=== PATIENT | female | born 1995 | race Caucasian/White ===

== ENCOUNTER 2016-07-28 18:19 | Inpatient (IN) | payer OTHER ==
[~2016-07-28] VITALS: Ht 162.6 cm; Wt 60.0 kg
--- NOTE | 2016-07-28 20:56 | DIAGNOSTIC IMAGING REPORT ---
PROCEDURE: CT ABD/PELVIS WITH CONTRAST INDICATION: Left abdominal pain. Fever. Elevated white blood count (26,800). History of splenectomy. TECHNIQUE: 95 ml of Isovue 300 were injected intravenously and axial images were obtained of the entire abdomen and pelvis with sagittal and coronal reformations. COMPARISON: Compared to CT abdomen pelvis on 11/2010. FINDINGS: ABDOMEN: Moderate to marked consolidation at the left anterior lung, with mild parenchymal changes at the posterior lung bases, and a small left effusion. Gallbladder is partially contracted with (with moderate ingested material in the stomach). There is moderate stool in the left colon. Bowel pattern is otherwise normal, including appendix of. Status post splenectomy. Liver, pancreas, kidneys, and aorta are normal. PELVIS: Moderate stool in the sigmoid colon. Uterus and adnexal structures are normal. No evidence of free fluid. IMPRESSION: 1. Moderate to marked consolidation at the left anterior lung base with mild parenchymal changes at the posterior lung bases, and a small left pleural effusion. Findings are most compatible with pneumonia. 2. Moderate stool throughout the left and sigmoid colon. Consider obstipation. 3. Status post splenectomy. 4. Findings discussed with NATALIYA Salmon. All CT scans at this facility use dose modulation, iterative reconstruction, and/or weight-based dosing when appropriate to reduce radiation dose to as low as reasonably achievable.
--- NOTE | 2016-07-28 21:15 | ED ORDER SUMMARY ---
..... Patient: OK BUSCH OrderSheet [facility] VisitID: [id number] [place] [address] 21y, F Registration Date/Time: 07/28/2016 ORDER SHEET Weight: 54.4 kg (stated) Allergies: None GENERAL ORDERS: CT Abd/Pel w Cont (No) (pending) Urgent (19:00 07/28/2016 HBivens A.R.N.P.) (Ack 19:01 KHoerner) (20:36 MCampbell) CBC w Diff Urgent (19:00 07/28/2016 HBivens A.R.N.P.) (Ack 19:01 KHoerner) (19:19 KKnebel R.N.) CMP Urgent (19:00 07/28/2016 HBivens A.R.N.P.) (Ack 19:01 KHoerner) (19:19 KKnebel R.N.) UA-Culture if indicated Urgent (19:00 07/28/2016 HBivens A.R.N.P.) (Ack 19:01 KHoerner) (20:38 KKnebel R.N.) Amylase Urgent (19:00 07/28/2016 HBivens A.R.N.P.) (Ack 19:01 KHoerner) (19:19 KKnebel R.N.) Lipase Urgent (19:00 07/28/2016 HBivens A.R.N.P.) (Ack 19:01 KHoerner) (19:19 KKnebel R.N.) Urine Drug Screen Urgent (19:26 07/28/2016 HBivens A.R.N.P.) (19:28 KKnebel R.N.) Urine Urgent (19:27 07/28/2016 HBivens A.R.N.P.) (19:28 KKnebel R.N.) Blood Culture (No) (N/A) Urgent (19:46 07/28/2016 HBivens A.R.N.P.) (Ack 19:57 AMcQuoid ER Tech1) (20:03 KKnebel R.N.) Lactate, Serum Urgent (19:47 07/28/2016 HBivens A.R.N.P.) (Ack 19:57 AMcQuoid ER Tech1) (20:03 KKnebel R.N.) PCT (Procalcitonin) Urgent (19:47 07/28/2016 HBivens A.R.N.P.) (Ack 19:57 AMcQuoid ER Tech1) (20:03 KKnebel R.N.) Rapid Influenza Screen (Nasal Pharyngeal) (nares) Urgent (20:52 07/28/2016 HBivens A.R.N.P.) (Ack 21:12 AMcQuoid ER Tech1) (21:46 KKnebel R.N.) Chest 2V Urgent (21:00 07/28/2016 HBivens A.R.N.P.) (Ack 21:12 AMcQuoid ER Tech1) (21:31 MCampbell) MEDICATION ORDERS: IV FLUIDS: IV NS : initial bolus 1000 mL (1000 mL/hr), then none - (NOW) (18:59 07/28/2016 HBivens A.R.N.P.) (19:20 KKnebel R.N.) Toradol IV 30 mg (NOW) (18:59 07/28/2016 HBivens A.R.N.P.) (19:20 KKnebel R.N.) IV Saline Lock (19:00 07/28/2016 HBivens A.R.N.P.) (19:19 KKnebel R.N.) Ceftriaxone IV 1 gm/50mL (NOW) (21:12 07/28/2016 HBivens A.R.N.P.) (21:45 KKnebel R.N.) ORDER SHEET NOTES: [Electronically signed by Ema Meraz R.N. (23:11 07/28/2016)] [Electronically signed by Kari Brush A.R.N.P. (12:59 07/29/2016)] [Electronically locked/signed by Ema Meraz R.N. (23:11 07/28/2016)]
--- NOTE | 2016-07-28 21:15 | ED ORDER SUMMARY ---
..... Patient: OK BUCSH OrderSheet [facility] VisitID: [id number] [place] [address] 21y, F Registration Date/Time: 07/28/2016 ORDER SHEET Weight: 54.4 kg (stated) Allergies: None GENERAL ORDERS: CT Abd/Pel w Cont (No) (pending) Urgent (19:00 07/28/2016 HBivens A.R.N.P.) (Ack 19:01 KHoerner) (20:36 MCampbell) CBC w Diff Urgent (19:00 07/28/2016 HBivens A.R.N.P.) (Ack 19:01 KHoerner) (19:19 KKnebel R.N.) CMP Urgent (19:00 07/28/2016 HBivens A.R.N.P.) (Ack 19:01 KHoerner) (19:19 KKnebel R.N.) UA-Culture if indicated Urgent (19:00 07/28/2016 HBivens A.R.N.P.) (Ack 19:01 KHoerner) (20:38 KKnebel R.N.) Amylase Urgent (19:00 07/28/2016 HBivens A.R.N.P.) (Ack 19:01 KHoerner) (19:19 KKnebel R.N.) Lipase Urgent (19:00 07/28/2016 HBivens A.R.N.P.) (Ack 19:01 KHoerner) (19:19 KKnebel R.N.) Urine Drug Screen Urgent (19:26 07/28/2016 HBivens A.R.N.P.) (19:28 KKnebel R.N.) Urine Urgent (19:27 07/28/2016 HBivens A.R.N.P.) (19:28 KKnebel R.N.) Blood Culture (No) (N/A) Urgent (19:46 07/28/2016 HBivens A.R.N.P.) (Ack 19:57 AMcQuoid ER Tech1) (20:03 KKnebel R.N.) Lactate, Serum Urgent (19:47 07/28/2016 HBivens A.R.N.P.) (Ack 19:57 AMcQuoid ER Tech1) (20:03 KKnebel R.N.) PCT (Procalcitonin) Urgent (19:47 07/28/2016 HBivens A.R.N.P.) (Ack 19:57 AMcQuoid ER Tech1) (20:03 KKnebel R.N.) Rapid Influenza Screen (Nasal Pharyngeal) (nares) Urgent (20:52 07/28/2016 HBivens A.R.N.P.) (Ack 21:12 AMcQuoid ER Tech1) (21:46 KKnebel R.N.) Chest 2V Urgent (21:00 07/28/2016 HBivens A.R.N.P.) (Ack 21:12 AMcQuoid ER Tech1) (21:31 MCampbell) MEDICATION ORDERS: IV FLUIDS: IV NS : initial bolus 1000 mL (1000 mL/hr), then none - (NOW) (18:59 07/28/2016 HBivens A.R.N.P.) (19:20 KKnebel R.N.) Toradol IV 30 mg (NOW) (18:59 07/28/2016 HBivens A.R.N.P.) (19:20 KKnebel R.N.) IV Saline Lock (19:00 07/28/2016 HBivens A.R.N.P.) (19:19 KKnebel R.N.) Ceftriaxone IV 1 gm/50mL (NOW) (21:12 07/28/2016 HBivens A.R.N.P.) (21:45 KKnebel R.N.) ORDER SHEET NOTES: [Electronically signed by Ema Meraz R.N. (23:11 07/28/2016)] [Electronically signed by Kari Brush A.R.N.P. (12:59 07/29/2016)] [Electronically locked/signed by Ema Meraz R.N. (23:11 07/28/2016)]
--- NOTE | 2016-07-28 21:15 | ED NURSING NOTES ---
Clinical Report - Nurses Merged With [facility] [address] [place] [address] 07/28/2016 18:20 Patient: OK BUSCH TRIAGE Triage time 18:37 Jul 28 2016. Acuity: LEVEL 3. Chief Complaint: ABDOMINAL PAIN. Alert. No acute distress. --18:42 Ema Meraz R.N. 18:37 07/28/16. BP: 134/75. HR: 134. RR: 30. O2 saturation: 96%. Temp: 99.9 F. Pain level now: 01/26. --18:42 Ema Meraz R.N. Weight: 54.4 kg stated. Height/Length: 64 inches Per Patient. BMI: 20.6. --18:42 Ema Meraz R.N. Medications None. --18:39 Ema Meraz R.N. Allergies None. --18:39 Ema Meraz R.N. History Arrived by private vehicle. Historian: patient. Accompanied by family. This is a new problem. Symptoms are constant (about 1 weeks). She has had fever. Last oral intake by patient was this afternoon. Treatment RFP WRITER: Took Tylenol. PAST MEDICAL HX: Immunizations: up-to-date. Last normal menstrual period now. Denies current . SOCIAL HX: Current every day heavy tobacco smoker (cigarette)- less than 1 pack per day. No alcohol use or drug use. No recent travel. No infectious disease exposure. No known contact with a sick individual. SELF HARM ASSESSMENT: A self harm assessment was performed. The patient answered "no" to the question "Do you have thoughts of harming or killing yourself?". FALL RISK ASSESSMENT: Fall risk assessment completed. No fall risk identified. NUTRITIONAL RISK ASSESSMENT: The nutritional risk assessment revealed no deficiencies. FUNCTIONAL ASSESSMENT: Functional assessment: no impairments noted. LEARNING NEEDS ASSESSMENT: The learning needs assessment revealed no barriers. ABUSE ASSESSMENT: Abuse assessment: The patient was asked "Do you feel safe in your home?". SKIN INTEGRITY ASSESSMENT: Skin integrity risk assessment completed. No skin integrity risk identified. --18:42 Ema Meraz R.N. ( patient states that her left arm and hand hurt with some noted swelling at the wrist. no injury.). --18:53 Ema Meraz R.N. PROBLEMS: STD - Sexually Transmitted Disease. Pelvic Pain. Diarrhea. Heart Disease. Substance Abuse. Cellulitis. Abscess. Sty. Acute Otalgia. Herpes Zoster. Myofascial Strain. Back Pain. Depression. Suicidal Ideation. Pt cut self at age 13/14. UTI - Urinary Tract Infection. Vomiting. Nausea. Cervical Strain. Tetanus Status. Spherocytosis. URI. Lifestyle / Substance Problems. Fall. Contusion. Immunizations. Skin Rash. LNMP - Last Normal Menstrual Period. Sferocytosis. --18:40 Ema Meraz R.N. Pyelonephritis [RuleOut]. --18:40 Ema Meraz R.N. ADDITIONAL SURGERIES: Adenoidectomy. Splenectomy. Tonsillectomy. --18:40 Ema Meraz R.N. Interventions ID band on patient. To room. --18:42 Ema Meraz R.N. PHYSICAL ASSESSMENT GENERAL / NEURO / PSYCH: Alert. Oriented X 4. Appears in pain and anxious. RESPIRATORY: Breath sounds within normal limits. CVS: Cardiac rhythm: sinus tachycardia. Capillary refill less than 2 seconds. GI / : Abdomen soft. Abdominal tenderness in the left upper quadrant. Bowel sounds within normal limits. SKIN: Skin is slightly diaphoretic. --18:52 Ema Meraz R.N. NURSING PROGRESS NOTES 19:14 07/28/2016 Site #1 started via IV in the right wrist with an 20g angiocath, with aseptic technique and good blood return; one attempt. Blood drawn: rainbow set. Labeled in the presence of the patient and sent to the lab. Saline lock flushed with 10 mL saline. --19:19 Ema Meraz R.N. 19:15 07/28/2016 Started bag #1 1000 mL IV Fluids IV NS (Saline); bolus of 1000 mL over 1 hour(s) via site #1 via IV pump. Allergies verified and confirmed 5 rights. IV patency established. IV site checked: no pain, redness, or swelling. IV flushed thoroughly pre- and post-medication administration. --19:20 Ema Meraz R.N. 19:20 07/28/2016 Toradol IVP 30 mg given over 2 minute(s) via site #1. Allergies verified and confirmed 5 rights. IV patency established. IV site checked: no pain, redness, or swelling. IV flushed thoroughly pre- and post-medication administration. --19:20 mEa Meraz R.N. 19:20 07/28/16. BP: 115/62. HR: 120. RR: 27. O2 saturation: 96%. Temp: 100.1 F. Pain level now: 09/26. --19:21 Ema Meraz R.N. ( patient went to bathroom but was not able to provide urine sample stated that she "couldn't get the lid off"). --19:40 Ema Meraz R.N. Critical value relayed to ED by jose. Critical value received by ema. WBC: 26.8. Critical value read back. Verified lab result and patient ID. SUPERINTENDENT PIER notifed of critical value ([place]ivans). Orders were not received. Nurse practitioner notified that lab results are back. --19:44 Ema Meraz R.N. 20:35 07/28/16. BP: 116/65. HR: 110. RR: 20. O2 saturation: 99%. Temp: 98.3 F. Pain level now: 08/26. --20:37 Ema Meraz R.N. Patient ID band checked for patient name and birthdate: patient confirmed. Instructions provided to collect clean catch urine and patient verbalized understanding. Clean catch urine collected with return of yellow-colored clear urine; sample sent to lab for urinalysis, culture, drug screen and HCG. Specimen labeled in the presence of the patient. --20:37 Ema Meraz R.N. 21:25 Patient given inpatient H&P form for completiong. --21:29 Shelley Oleary ER Tech1 21:45 07/28/2016 Started 1 gm of Ceftriaxone IVPB in bag #1 50 mL; at 150 mL/hr over 20 minute(s) via site #1 via IV pump. Allergies verified and confirmed 5 rights. IV patency established. IV site checked: no pain, redness, or swelling. IV flushed thoroughly pre- and post-medication administration. --21:45 Ema Meraz R.N. DISPOSITION / DISCHARGE 22:26 07/28/16. BP: 96/59. HR: 102. RR: 16. O2 saturation: 93%. Temp: 98.3 F. Pain level now unable to obtain. --22:27 Ema Meraz R.N. <<STRICKEN ENTRY-- 22:45 07/28/16. BP: 96/59. --22:46 Ema Meraz R.N. --END STRIKE>> Correction. --22:46 Ema Meraz R.N. 22:30 07/28/16. BP: 96/59. --22:47 Ema Meraz R.N. 22:47 07/28/16. BP: 114/79. HR: 81. RR: 16. O2 saturation: 97%. --22:47 Ema Meraz R.N. Report was given to a nurse via a phone call. Report included patient's care, treatment, medications, reviewed medication reconcilliation, and condition (including any recent changes or anticipated changes). All questions were answered. Report was acknowledged. (Felicita). Patient's personal items include: shirt, pants and jewelry, blanket; items were placed in belongings bag, given to the patient and transported with the patient. --23:10 Ema Meraz R.N. Transported via stretcher by transport team. --23:10 Ema Meraz R.N. Locked/Released at 07/28/2016 23:11 by Ema Meraz R.N.
--- NOTE | 2016-07-28 21:15 | ED CLINICAL REPORT ---
Clinical Report - Physicians/Mid Levels [facility] [address] [place] [address] 07/28/2016 18:20 Patient: OK BUSCH Time Seen: 18:54; initial patient contact, initial documentation, patient care assumed. Arrived- By private vehicle. Historian- patient and mother. HISTORY OF PRESENT ILLNESS Chief Complaint: ABDOMINAL PAIN. At its maximum, severity described as severe. When seen in the E.D., severity described as severe. Modifying factors- worsened by supine position. Not relieved by anything. This started about 1 weeks ago. It is described as "pain". No radiation. It is described as located in the left chest and the left upper quadrant. No nausea, loss of appetite, vomiting or diarrhea. No additional abdominal pain. No recent travel. Similar symptoms previously: None. Recent medical care: Not recently seen/assessed. REVIEW OF SYSTEMS No constipation, black stools, hematemesis, difficulty with urination or pain with urination. No urinary frequency, bloody stools, chest pain or difficulty breathing. She has had a subjective fever. All systems otherwise negative, except as recorded above. PAST HISTORY See nurses notes. PROBLEMS: STD - Sexually Transmitted Disease. Pelvic Pain. Diarrhea. Heart Disease. Substance Abuse. Cellulitis. Abscess. Sty. Acute Otalgia. Herpes Zoster. Myofascial Strain. Back Pain. Depression. Suicidal Ideation. Pt cut self at age 13/14. UTI - Urinary Tract Infection. Vomiting. Nausea. Cervical Strain. Tetanus Status. Spherocytosis. URI. Lifestyle / Substance Problems. Fall. Contusion. Immunizations. Skin Rash. LNMP - Last Normal Menstrual Period. Sferocytosis. --18:40 Ema Meraz R.N. Pyelonephritis [RuleOut]. --18:40 Ema Meraz R.N. ADDITIONAL SURGERIES: Adenoidectomy. Splenectomy. Tonsillectomy. --18:40 Ema Meraz R.N. SOCIAL HISTORY Heavy tobacco smoker. No alcohol use or drug use. No recent travel. Is a local resident. FAMILY HISTORY Negative. ADDITIONAL NOTES The nursing notes have been reviewed with agreement regarding the chief complaint, HPI, ROS, PMH and patient medications and allergies. PHYSICAL EXAM Vital Signs: 07/28/2016 18:37 BP: 134/75. HR: 134. RR: 30. O2 saturation: 96%. Temp: 99.9 F. Pain level now: 10/10. Have been reviewed as abnormal and appear to be correct. Blood pressure normal. Tachycardic. Respiratory rate normal. Temperature normal. Oxygen saturation normal. Appearance: Alert. Oriented X3. No acute distress. (pt dirty and unkept). Eyes: Pupils equal, round and reactive to light. Eyes normal inspection. Neck: Normal inspection. Neck supple. CVS: Heart rate / rhythm abnormal. Tachycardia (ventricular rate = 136). Heart sounds normal. Pulses normal. Respiratory: No respiratory distress. Breath sounds normal. Chest nontender. Abdomen: Soft and nontender. Bowel sounds normal. No organomegaly. No mass. (pt refused to lay back, stating that sitting straight up was only way to get comfortable). Back: Normal inspection. Skin: Skin warm and dry. Normal skin color. No rash. Normal skin turgor. (?iv track venegas on arms). Extremities: Extremities exhibit normal ROM. No lower extremity edema. Neuro: Oriented X 3. No motor deficit. No sensory deficit. LABS, X-RAYS, AND EKG Abdominal CT: . IMPRESSION: 1. Moderate to marked consolidation at the left anterior lung base with mild parenchymal changes at the posterior lung bases, and a small left pleural effusion. Findings are most compatible with pneumonia. 2. Moderate stool throughout the left and sigmoid colon. Consider obstipation. 3. Status post splenectomy. 4. Findings discussed with NATALIYA Salmon. All CT scans at this facility use dose modulation, iterative reconstruction, and/or weight-based dosing when appropriate to reduce radiation dose to as low as reasonably achievable. Electronically Final signed by:Rico Amaya MD 07/28/2016 8:53:20 PM. The study was interpreted by the radiologist and discussed with the radiologist. Interpretation time: 20:55. Laboratory Tests: UA-Culture if indicated: (SHANICE: 07/28/2016 20:30) ( [facility] [place] [facility] [facility] Final results Test Result Flag Units (Reference) URINE COLOR STRAW URINE APPEARANCE CLEAR URINE GLUCOSE NEGATIVE (NEGATIVE) URINE BILIRUBIN NEGATIVE (NEGATIVE) URINE KETONE NEGATIVE (NEGATIVE) URINE SPECIFIC GRAVITY <= 1.005 L (1.010-1.030) URINE PH 6.0 (5.0-8.0) URINE PROTEIN NEGATIVE (NEGATIVE) URINE UROBILINOGEN 0.2 EU/dL (0.2-1.0) URINE NITRITE NEGATIVE (NEGATIVE) URINE BLOOD 2+ (NEGATIVE) URINE LEUK ESTERASE NEGATIVE (NEGATIVE) URINE RBC 1-3 rbc/hpf (0-1) URINE WBC 0-1 wbc/hpf (0-1) URINE EPITHELIAL CELLS 0-1 EPI/hpf (0-5) URINE BACTERIA TRACE (<1+) (NONE SEEN) URINE COMMENT CULT NOT INDICATED URINE CULTURES ARE SET-UP BASED ON THE FOLLOWING CRITERIA:POSITIVE NITRITEPOSITIVE LEUKOCYTE ESTERASEGREATER THAN 10 WHITE BLOOD CELLSMODERATE (2+) OR GREATER BACTERIA Urine: (SHANICE: 07/28/2016 20:30) ( [facility] [place] 20:46) Final results Test Result Flag Units (Reference) URINE NEGATIVE CBC w Diff: (SHANICE: 07/28/2016 19:15) ( [facility] [place] 07/28/2016 20:18) Final results Test Result Flag Units (Reference) WHITE BLOOD COUNT 26.8 *H K/uL (4.5-11.5) CRITICAL RESULTS CALLEDCalled to AMBREEN DOLL IN ED 07/28/161941Were 2 patient identifiers used? YWas the result read back? YMANUAL DIFFERENTIAL TO FOLLOW. RED BLOOD COUNT 4.67 M/uL (4.00-5.20) HEMOGLOBIN 13.2 gm/dL (12.0-16.0) HEMATOCRIT 37.3 % (36.0-46.0) MEAN CELL VOLUME 80 fL (80-100) MEAN CORPUSCULAR HGB 28 pg (26-34) MEAN CORPUSCULAR HGB CONC 35 g/dL (31-37) RED CELL DISTRIBUTION WIDTH 12.7 % (11.6-14.8) PLATELET COUNT 440 H K/uL (150-400) POLY % 63 % (50-75) BAND % 17 H % (0-8) LYMPH 9 L % (25-40) MONO 11 % (3-14) EOSINOPHIL % 0 % (0-4) BASOPHIL % 0 % (0-2) METAMYELOCYTE % 0 % (0-1) MYELOCYTE 0 % (0-1) OTHER CELL TYPE 0 MERCHANT-JOLLY BODIES 1+ Lactate, Serum: (SHANICE: 07/28/2016 20:10) ( [facility] [place] [facility] 20:42) Final results Test Result Flag Units (Reference) LACTIC ACID 2.2 H mmol/L (0.4-2.0) [id number]: (SHANICE: 07/28/2016 18:15) ( FlgRcvd 07/28/2016 20:38) Final results Test Result Flag Units (Reference) PROCALCITONIN 0.6 H ng/mL (0-0.5) PCT Concentration: Interpretation : Risk/option for action PCT <=0.5 ng/mL : Systemic : Low risk forinfection(sepsis): progression to severeis not likely. : systemic infection.Local bacterial : CAUTION-PCT levelsinfection is : below 0.5 ng/mL do notpossible. : exclude an infection,because localizedinfections (withoutsystemic signs) may beassociated with suchlow levels. If PCT ismeasured very earlyafter a bacterialchallenge (usually <6hours), these valuesmay still be low. Inthis case PCT shouldbe re-assessed 6-24hours later. PCT >0.5 and : Systemic infection: Moderate risk for<= 2 ng/mL : (sepsis) is : progression to severepossible, but : systemic infection.other conditions : The patient should beare known to : closely monitoredelevate PCT. : both clinically andby re-assessing PCTwithin 6-24 hours. PCT > 2 ng/mL : Systemic infection: High risk for(sepsis) is likely: progression to severeunless other : systemic infection.causes are known. : PCT >= 10 ng/mL : Important systemic: High likelihood ofinflammatory : severe sepsis orresponse, almost : septic shock.exclusively due to:severe bacterial :sepsis or septic :shock. : Urine Drug Screen: (SHANICE: 07/28/2016 20:30) ( MsgRcvd 07/28/2016 21:00) Final results Test Result Flag Units (Reference) AMPHETAMINE/METHAMPHETAMINE NEGATIVE (NEGATIVE) BARBITURATE NEGATIVE (NEGATIVE) BENZODIAZEPINE NEGATIVE (NEGATIVE) CANNABINOID NEGATIVE (NEGATIVE) COCAINE NEGATIVE (NEGATIVE) ECSTASY NEGATIVE (NEGATIVE) METHADONE NEGATIVE (NEGATIVE) OPIATE NEGATIVE (NEGATIVE) The urine drug screen is a qualitative screening test fordrug overdose and abuse. All screen results should beconsidered as presumptive.Drugs screened for are as follows:BenzodiazepinesCocaineAmphetamines/MetamphetaminesTHC (Tetrahydrocannabinol)OpiatesBarbituratesEcstasyMethadonePositive results are unconfirmed. For confirmation, notifythe lab for the specimen to be sent to the reference lab.All confirmations must be performed by a differentmethodology.The ingestion of natural herbal and plant productscontaining Ephedra/Ephedra metabolites can produce in urineone or more substances capable of cross reacting withamphetamine/methamphetamine immunoassays. These testsprovide a preliminary result only. A more specificalternative chemical method must be used to obtain aconfirmed analytical result. CMP: (SHANICE: 07/28/2016 19:15) ( MsgRcvd 07/28/2016 19:53) Final results Test Result Flag Units (Reference) GLUCOSE 151 H mg/dL (70-110) BUN 6 L mg/dL (7-18) CREATININE 0.7 mg/dL (0.6-1.3) Estimated GFR >60 mL/min Estimated GFR- >60 mL/min Note: Persistent reduction over 3 months in eGFR<60 mL/min/1.73 m2 defines CKD. Patients with eGFR values>=60 mL/min/1.73 m2 may also have CKD if evidence ofpersistent proteinuria. Additional information may be foundat www.kidney.org. SODIUM 132 L mmol/L (136-145) POTASSIUM 3.2 L mmol/L (3.5-5.1) CHLORIDE 96 L mmol/L (98-107) CARBON DIOXIDE 23 mmol/L (21-32) CALCIUM 8.1 L mg/dL (8.5-10.1) TOTAL PROTEIN 6.7 g/dL (6.4-8.2) ALBUMIN 2.7 L g/dL (3.3-5.0) BILIRUBIN, TOTAL 0.4 mg/dL (0.0-1.0) ALKALINE PHOSPHATASE 93 U/L (46-116) AST (SGOT) 29 U/L (15-37) ALT (SGPT) 43 U/L (12-78) LIPASE 56 L U/L (73-393) AMYLASE 19 L U/L (25-115) . PROGRESS AND PROCEDURES Course of Care: 21:43 07/28/16. DR Faye here. 07/28/2016 20:35 BP: 116/65. HR: 110. RR: 20. O2 saturation: 99%. Temp: 98.3 F. Pain level now: 08/26. Vital Signs: have been reviewed as normal and appear to be correct. Discussed case with on-call health care provider, (call returned [phone] Dr Faye). Reviewed test results. Agreed upon treatment plan and decision to admit. Health care provider will see patient in ED. Patient and family counseled in person regarding the patient's stable condition, test results, diagnosis and need for admission. 21:00. Differential Diagnosis: I considered gastritis, gastroenteritis, peptic ulcer disease, gastroesophageal reflux disease, diverticulitis, colon cancer, ulcerative colitis, Crohn's disease, biliary colic, cholecystitis, cholelithiasis, hepatitis, pancreatitis, urinary tract infection, ureterolithiasis, and viral syndrome as a possible cause of abdominal pain in this patient. This is a partial list of diagnoses considered. Above considerations are based on history, physical exam, reassessment and laboratory data. Differential diagnosis was discussed with patient. Disposition: Condition: good and stable. CLINICAL IMPRESSION Bacterial bronchopneumonia with sepsis. Vital signs recorded and reviewed; empiric antibiotics given in the ED and prescribed. No hypoxemia or respiratory failure. (Electronically signed by Kari Brush A.R.N.P. 07/29/2016 12:59)
--- NOTE | 2016-07-28 21:15 | ED NURSING NOTES ---
Clinical Report - Nurses [facility] [address] [place] [address] 07/28/2016 18:20 Patient: OK BUSCH TRIAGE Triage time 18:37 Jul 28 2016. Acuity: LEVEL 3. Chief Complaint: ABDOMINAL PAIN. Alert. No acute distress. --18:42 Ema Meraz R.N. 18:37 07/28/16. BP: 134/75. HR: 134. RR: 30. O2 saturation: 96%. Temp: 99.9 F. Pain level now: 01/26. --18:42 Ema Meraz R.N. Weight: 54.4 kg stated. Height/Length: 64 inches Per Patient. BMI: 20.6. --18:42 Ema Meraz R.N. Medications None. --18:39 Ema Meraz R.N. Allergies None. --18:39 Ema Meraz R.N. History Arrived by private vehicle. Historian: patient. Accompanied by family. This is a new problem. Symptoms are constant (about 1 weeks). She has had fever. Last oral intake by patient was this afternoon. 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 PAST MEDICAL HX: Immunizations: up-to-date. Last normal menstrual period now. Denies current . SOCIAL HX: Current every day heavy tobacco smoker (cigarette)- less than 1 pack per day. No alcohol use or drug use. No recent travel. No infectious disease exposure. No known contact with a sick individual. SELF HARM ASSESSMENT: A self harm assessment was performed. The patient answered "no" to the question "Do you have thoughts of harming or killing yourself?". FALL RISK ASSESSMENT: Fall risk assessment completed. No fall risk identified. NUTRITIONAL RISK ASSESSMENT: The nutritional risk assessment revealed no deficiencies. FUNCTIONAL ASSESSMENT: Functional assessment: no impairments noted. LEARNING NEEDS ASSESSMENT: The learning needs assessment revealed no barriers. ABUSE ASSESSMENT: Abuse assessment: The patient was asked "Do you feel safe in your home?". SKIN INTEGRITY ASSESSMENT: Skin integrity risk assessment completed. No skin integrity risk identified. --18:42 Ema Meraz R.N. ( patient states that her left arm and hand hurt with some noted swelling at the wrist. no injury.). --18:53 Ema Meraz R.N. PROBLEMS: STD - Sexually Transmitted Disease. Pelvic Pain. Diarrhea. Heart Disease. Substance Abuse. Cellulitis. Abscess. Sty. Acute Otalgia. Herpes Zoster. Myofascial Strain. Back Pain. Depression. Suicidal Ideation. Pt cut self at age [age]. UTI - Urinary Tract Infection. Vomiting. Nausea. Cervical Strain. Tetanus Status. Spherocytosis. URI. Lifestyle / Substance Problems. Fall. Contusion. Immunizations. Skin Rash. LNMP - Last Normal Menstrual Period. Sferocytosis. --18:40 Ema Meraz R.N. Pyelonephritis [RuleOut]. --18:40 Ema Meraz R.N. ADDITIONAL SURGERIES: Adenoidectomy. Splenectomy. Tonsillectomy. --18:40 Ema Meraz R.N. Interventions ID band on patient. To room. --18:42 Ema Meraz R.N. PHYSICAL ASSESSMENT GENERAL / NEURO / PSYCH: Alert. Oriented X 4. Appears in pain and anxious. RESPIRATORY: Breath sounds within normal limits. CVS: Cardiac rhythm: sinus tachycardia. Capillary refill less than 2 seconds. GI / : Abdomen soft. Abdominal tenderness in the left upper quadrant. Bowel sounds within normal limits. SKIN: Skin is slightly diaphoretic. --18:52 Ema Meraz R.N. NURSING PROGRESS NOTES 19:14 07/28/2016 Site #1 started via IV in the right wrist with an 20g angiocath, with aseptic technique and good blood return; one attempt. Blood drawn: rainbow set. Labeled in the presence of the patient and sent to the lab. Saline lock flushed with 10 mL saline. --19:19 Ema Meraz R.N. 19:15 07/28/2016 Started bag #1 1000 mL IV Fluids IV NS (Saline); bolus of 1000 mL over 1 hour(s) via site #1 via IV pump. Allergies verified and confirmed 5 rights. IV patency established. IV site checked: no pain, redness, or swelling. IV flushed thoroughly pre- and post-medication administration. --19:20 Ema Meraz R.N. 19:20 07/28/2016 Toradol IVP 30 mg given over 2 minute(s) via site #1. Allergies verified and confirmed 5 rights. IV patency established. IV site checked: no pain, redness, or swelling. IV flushed thoroughly pre- and post-medication administration. --19:20 Ema Meraz R.N. 19:20 07/28/16. BP: 115/62. HR: 120. RR: 27. O2 saturation: 96%. Temp: 100.1 F. Pain level now: 09/26. --19:21 Ema Meraz R.N. ( patient went to bathroom but was not able to provide urine sample stated that she "couldn't get the lid off"). --19:40 Ema Meraz R.N. Critical value relayed to ED by jose. Critical value received by ema. WBC: 26.8. Critical value read back. Verified lab result and patient ID. CLINICAL PROGRAM DIRECTOR notifed of critical value (Bivans). Orders were not received. Nurse practitioner notified that lab results are back. --19:44 Ema Meraz R.N. 20:35 07/28/16. BP: 116/65. HR: 110. RR: 20. O2 saturation: 99%. Temp: 98.3 F. Pain level now: 08/26. --20:37 Ema Meraz R.N. Patient ID band checked for patient name and birthdate: patient confirmed. Instructions provided to collect clean catch urine and patient verbalized understanding. Clean catch urine collected with return of yellow-colored clear urine; sample sent to lab for urinalysis, culture, drug screen and HCG. Specimen labeled in the presence of the patient. --20:37 Ema Meraz R.N. 21:25 Patient given inpatient H&P form for completiong. --21:29 Shelley Oleary ER Tech1 21:45 07/28/2016 Started 1 gm of Ceftriaxone IVPB in bag #1 50 mL; at 150 mL/hr over 20 minute(s) via site #1 via IV pump. Allergies verified and confirmed 5 rights. IV patency established. IV site checked: no pain, redness, or swelling. IV flushed thoroughly pre- and post-medication administration. --21:45 Ema Meraz R.N. DISPOSITION / DISCHARGE 22:26 07/28/16. BP: 96/59. HR: 102. RR: 16. O2 saturation: 93%. Temp: 98.3 F. Pain level now unable to obtain. --22:27 Ema Meraz R.N. <<STRICKEN ENTRY-- 22:45 07/28/16. BP: 96/59. --22:46 Ema Meraz R.N. --END STRIKE>> Correction. --22:46 Ema Meraz R.N. 22:30 07/28/16. BP: 96/59. --22:47 Ema Meraz R.N. 22:47 07/28/16. BP: 114/79. HR: 81. RR: 16. O2 saturation: 97%. --22:47 Ema Meraz R.N. Report was given to a nurse via a phone call. Report included patient's care, treatment, medications, reviewed medication reconcilliation, and condition (including any recent changes or anticipated changes). All questions were answered. Report was acknowledged. (Felicita). Patient's personal items include: shirt, pants and jewelry, blanket; items were placed in belongings bag, given to the patient and transported with the patient. --23:10 Ema Meraz R.N. Transported via stretcher by transport team. --23:10 Ema Meraz R.N. Locked/Released at 07/28/2016 23:11 by Ema Meraz R.N.
--- NOTE | 2016-07-28 22:12 | Progress Note ---
Subjective General 21 y.o. female with hx of depresion, IVDU, asplenia, spherocytosis who presents with abdominal pain and w/u pos for sepsis and pneumonia. Plan: IVF, zmycin, rocephin, monitor labs
[2016-07-28 22:55] VITALS: BP 99/51
--- NOTE | 2016-07-28 23:22 | DIAGNOSTIC IMAGING REPORT ---
PROCEDURE: XR CHEST 2 VIEW INDICATION: PNEUMONIA TECHNIQUE: PA and lateral views. COMPARISON: Compared CT abdomen and pelvis earlier today (07/28/2016). FINDINGS: Allowing for suboptimal inspiration, there are mild parenchymal change at the left anterior lung base with mild of bibasilar atelectasis. Mid and upper lung are clear. Heart and mediastinum are normal. Thorax is normal. IMPRESSION: 1. Mild parenchymal changes at the left anterior lung base with mild bibasilar atelectasis. Findings are consistent with an inflammatory process (e.g., pneumonia, ischemia). 2. Findings discussed with Dr. Faye.
--- NOTE | 2016-07-29 00:19 | HISTORY AND PHYSICAL ---
ADMITTED: 07/28/2016 CHIEF COMPLAINT: 1. Left upper abdominal pain, lower chest pain HISTORY OF PRESENT ILLNESS: The patient is a 21-year-old female with the known history of multiple medical problems including depression and drug issues, as well as a history of asplenia and spherocytosis, presented to the emergency department with left upper abdominal pain. A CT of her abdomen was done, which showed abnormal pneumonia in her lung and she was found to have abnormal laboratories and some changes in her baseline mental status and decision was made for admission for sepsis with sepsis protocol, as well as for pneumonia. MEDICAL/SURGICAL HISTORY: Past medical history: She has had STDs, pelvic pain, abscesses, drug use, history of heroin in particular, back pain, depression with attempted cutting at age 11, 12, falls, spherocytosis. Surgical history: She has had appendectomy, splenectomy, tonsillectomy. MEDICATIONS: 1. She does not take any medications currently. ALLERGIES: 1. NONE KNOWN. CODE STATUS: FULL. SOCIAL HISTORY: She lives with her boyfriend and grandmother. She does not drink. She does not actively drug, though mom thought she might be going through withdrawals. She smokes about a half pack per day. She is disabled due to mental illness issues. FAMILY HISTORY: Her mom is alive and well. Father has spherocytosis, alcoholism, drug abuse and bipolar disorder. REVIEW OF SYSTEMS: She is a little bit tired at the moment and after having some pain medicines is a little out of it, per mom. She has also had some chills and felt elevated temperature, though it was normal on check here. She denies any black or bloody stools. Denies any acute shortness of breath. PHYSICAL EXAMINATION: GENERAL: She is a sleepy-appearing female who appears to be in no acute distress. VITAL SIGNS: Blood pressure 134/75, heart rate of 134, respirations 30, saturating 96%, temperature 99.9. Her weight is 54.4 kg. HEENT: She has got superficial abrasions on her face, which her mom states is from picking and has some excoriations there. Eyes: Extraocular movements intact. Oropharynx is with moist mucous membranes. NECK: Supple, without lymphadenopathy. LUNGS: With coarse breath sounds bilaterally. HEART: Regular rate and rhythm. No murmur. ABDOMEN: Soft. It is nontender, nondistended. EXTREMITIES: No edema. GENITOURINARY: Deferred. RECTAL: Deferred. BREASTS: Deferred. NEUROLOGIC: Cranial nerves II-XII appear intact. Strength and sensation is hard to assess due to being kind of sleepy, but nonfocal. LAB/IMAGING: Procalcitonin 0.6, mildly positive. Lactic acid at 2.2. CBC: White count of 26.8, hematocrit 37.3, and platelets of 440,000, 17% bands. Comprehensive Metabolic Panel: Glucose 151, BUN 6, creatinine 0.7, sodium 132, potassium 3.2, chloride of 96, HCO3 23, calcium 8.1, total protein 6.7. Albumin 2.7, bili 0.4, alk phos 93, AST of 29, ALT of 43, lipase 56, amylase 19. Urinalysis was normal, 2+ blood, otherwise normal. Urine drug screen was negative. Urine was negative. CT of the abdomen: Shows moderate to marked consolidation of left anterior lung base and mild parenchymal changes of the posterior lung bases, small left pleural effusion compatible with pneumonia, otherwise no acute findings, and status post splenectomy. IMPRESSION: 1. This is a 21-year-old female who presents to the emergency department with left upper abdominal pain, but seems to have a left lower lobe pneumonia, likely having referred pain to the abdomen. PLAN: She is going to be treated with lots of IV fluids, IV antibiotics and monitor her blood work and her cardiac status. We will anticipate that patient will improve over the next few days, but she will need at least 48 hours in the hospital for improvement with this pneumonia.
[2016-07-29 02:43] VITALS: BP 112/59
--- NOTE | 2016-07-29 06:38 | Progress Note ---
Subjective General Brief Hx: This is a 21-year-old female who presents to the emergency department with left upper abdominal pain, but seems to have a left lower lobe pneumonia, likely having referred pain to the abdomen. Is feeling better this am. More awake, pain control adequate with tylenol. Has improved labs and feels ok. No cp,sob. Physical Exam Vital Signs / I&Os Vital Signs Date Time Temp Pulse Resp B/P Pulse O2 O2 Flow FiO2 Ox Delivery Rate 07/29 0302 106 21 100 Room Air 07/29 0256 105 07/29 0247 99.0 07/29 0243 112 22 112/59 94 Room Air 07/29 0140 4.0 07/28 2345 92 07/28 2315 4.0 07/28 2315 Nasal 4.0 Cannula 07/28 2255 97.9 94 15 99/51 93 Room Air 0.0 I&O 07/29 0000 07/28 1600 07/28 0800 Intake Total Output Total Balance General Appearance Alert, Cooperative HEENT Normal exam Lungs Clear to auscultation, Normal air movement Cardiovascular Regular rate and rhythm, Normal S1 and S2 Abdomen Soft, No tenderness Extremities No edema LAB Results Laboratory Tests 07/29 Chemistry Lactic Acid (0.4 - 2.0 mmol/L) 1.9 Hematology WBC (4.5 - 11.5 K/uL) 24.5 RBC (4.00 - 5.20 M/uL) 4.09 Hgb (12.0 - 16.0 gm/dL) 11.5 Hct (36.0 - 46.0 %) 32.9 MCV (80 - 100 fL) 80 MCH (26 - 34 pg) 28 RDW (11.6 - 14.8 %) 13.0 Neut % (Auto) (50 - 75 %) Pending Lymph % (Auto) (25 - 40 %) Pending [place] % (Auto) (3 - 14 %) Pending Band Neutrophils % (0 - 8 %) Pending Plt Count, EDTA (150 - 400 K/uL) 384 PUBS MCHC (31 - 37 g/dL) 35 Toxicology Urine Opiates Screen (NEGATIVE) NEGATIVE Urine Methadone Screen (NEGATIVE) NEGATIVE Ur Barbiturates Screen (NEGATIVE) NEGATIVE U Amphetamin/Meth Scrn (NEGATIVE) NEGATIVE MDMA (Ecstasy) Screen (NEGATIVE) NEGATIVE U Benzodiazepines Scrn (NEGATIVE) NEGATIVE Urine Cocaine Screen (NEGATIVE) NEGATIVE U Cannabinoids Screen (NEGATIVE) NEGATIVE Urines Urine Color STRAW Urine Appearance CLEAR Urine pH (5.0 - 8.0) 6.0 Ur Specific [place] (1.010 - 1.030) <= 1.005 Urine Protein (NEGATIVE) NEGATIVE Urine Ketones (NEGATIVE) NEGATIVE Urine Blood (NEGATIVE) 2+ Urine Nitrite (NEGATIVE) NEGATIVE Urine Bilirubin (NEGATIVE) NEGATIVE Urine Urobilinogen (0.2 - 1.0 EU/dL) 0.2 Ur Leukocyte Esterase (NEGATIVE) NEGATIVE Urine RBC (0 - 1 rbc/hpf) 1-3 Urine WBC (0 - 1 wbc/hpf) 0-1 Ur Epithelial Cells (0 - 5 EPI/hpf) 0-1 Urine Bacteria (NONE SEEN) TRACE (<1+) Urine Glucose (NEGATIVE) NEGATIVE Urine Test NEGATIVE Urine Comment CULT NOT INDICATED 07/28 191 1815 Chemistry Plasma Sodium (136 - 145 mmol/L) 132 Plasma Potassium (3.5 - 5.1 mmol/L) 3.2 Plasma Chloride (98 - 107 mmol/L) 96 CO2 (Enzymatic) (21 - 32 mmol/L) 23 BUN (7 - 18 mg/dL) 6 Creatinine (0.6 - 1.3 mg/dL) 0.7 Est GFR ( Amer) (mL/min) >60 Est GFR (Non-Af Amer) (mL/min) >60 Glucose (70 - 110 mg/dL) 151 Lactic Acid (0.4 - 2.0 mmol/L) 2.2 Plasma Calcium (8.5 - 10.1 mg/dL) 8.1 Total Bilirubin (0.0 - 1.0 mg/dL) 0.4 AST (15 - 37 U/L) 29 ALT (12 - 78 U/L) 43 Alkaline Phosphatase (46 - 116 U/L) 93 Total Protein (6.4 - 8.2 g/dL) 6.7 Albumin (3.3 - 5.0 g/dL) 2.7 Amylase (25 - 115 U/L) 19 Lipase (73 - 393 U/L) 56 Procalcitonin (0 - 0.5 ng/mL) 0.6 Hematology WBC (4.5 - 11.5 K/uL) 26.8 RBC (4.00 - 5.20 M/uL) 4.67 Hgb (12.0 - 16.0 gm/dL) 13.2 Hct (36.0 - 46.0 %) 37.3 MCV (80 - 100 fL) 80 MCH (26 - 34 pg) 28 RDW (11.6 - 14.8 %) 12.7 Neut % (Auto) (50 - 75 %) 63 Lymph % (Auto) (25 - 40 %) 9 [place] % (Auto) (3 - 14 %) 11 Eos % (Auto) (0 - 4 %) 0 Baso % (Auto) (0 - 2 %) 0 Band Neutrophils % (0 - 8 %) 17 Metamyelocytes % (0 - 1 %) 0 Myelocytes (0 - 1 %) 0 Other Cell Type 0 Plt Count, EDTA (150 - 400 K/uL) 440 [place]-Radar Base Bodies 1+ PUBS MCHC (31 - 37 g/dL) 35 Microbiology Date/Time Procedure - Status Source Growth 07/29 UNK MRSA Screen - RECD NASAL 07/28 2144 Influenza Screen - COMP NASALPHAR 07/28 2024 Blood Culture - RECD BLOOD 07/28 2009 Blood Culture - RECD BLOOD Assessment and Plan Problem List 1. Sepsis Plan Is improving clinically and with labs. Lactic acid ok. Continue abx. 2. Pneumonia Plan Continue ceftriaxone and zmycin 3. Asplenia Plan Will need confirmation up to date on pneumonia shot 4. Hypokalemia Plan Has IVF with K and re check in am.
[2016-07-29 07:02] VITALS: BP 104/63
[2016-07-29 11:42] VITALS: BP 118/77
--- NOTE | 2016-07-29 12:59 | ED DISCHARGE INSTRUCTIONS ---
Patient: OK BUSCH General Instructions [facility] VisitID: [id number] [address] [place] [address] 21y, F Registration Date/Time: 07/28/2016 Bacterial bronchopneumonia with sepsis. Vital signs recorded and reviewed; empiric antibiotics given in the ED and prescribed. No hypoxemia or respiratory failure. (Electronically signed by Kari Brush A.R.N.P. 07/29/2016 12:59)
--- NOTE | 2016-07-29 12:59 | ED DISCHARGE INSTRUCTIONS ---
Patient: OK BUSCH General Instructions [facility] VisitID: [id number] [address] [place] [address] 21y, F Registration Date/Time: 07/28/2016 Bacterial bronchopneumonia with sepsis. Vital signs recorded and reviewed; empiric antibiotics given in the ED and prescribed. No hypoxemia or respiratory failure. (Electronically signed by Kari Brush A.R.N.P. 07/29/2016 12:59)
--- NOTE | 2016-07-29 13:00 | ED MAR SUMMARY ---
..... Medication Administration Record [facility] [address] [place] [address] Patient: OK BUSCH Visit ID: [id number] 21y, F Weight: 54.4 kg Height/Length: 64 in BMI: 20.6 ALLERGIES: None Start 19:15 07/28/2016 Ema Meraz R.N. Medication Administered: IV NS (SALINE), Dose: IV Fluids, Bolus: 1000 mL over 1 hour(s), Dispensed: 1000 mL bag, Site: #1 right wrist. Medication Ordered: IV NS : initial bolus 1000 mL (1000 mL/hr), then none - (NOW). Given 19:20 07/28/2016 Ema Meraz R.N. Medication Administered: TORADOL [IVP], Dose: 30 mg IVP over 2 minute(s), Site: #1 right wrist. Medication Ordered: Toradol IV 30 mg (NOW). Start 21:45 07/28/2016 Ema Meraz R.N. Medication Administered: CEFTRIAXONE [IVPB], Dose: 1 gm IVPB over 20 minute(s), Rate: 150 mL/hr, Dispensed: 50 mL bag, Site: #1 right wrist. Medication Ordered: Ceftriaxone IV 1 gm/50mL (NOW).
--- NOTE | 2016-07-29 13:00 | ED MAR SUMMARY ---
..... Medication Administration Record [facility] [address] [place] [address] Patient: OK BUSCH Visit ID: [id number] 21y, F Weight: 54.4 kg Height/Length: 64 in BMI: 20.6 ALLERGIES: None Start 19:15 07/28/2016 Ema Meraz R.N. Medication Administered: IV NS (SALINE), Dose: IV Fluids, Bolus: 1000 mL over 1 hour(s), Dispensed: 1000 mL bag, Site: #1 right wrist. Medication Ordered: IV NS : initial bolus 1000 mL (1000 mL/hr), then none - (NOW). Given 19:20 07/28/2016 Ema Meraz R.N. Medication Administered: TORADOL [IVP], Dose: 30 mg IVP over 2 minute(s), Site: #1 right wrist. Medication Ordered: Toradol IV 30 mg (NOW). Start 21:45 07/28/2016 Ema Meraz R.N. Medication Administered: CEFTRIAXONE [IVPB], Dose: 1 gm IVPB over 20 minute(s), Rate: 150 mL/hr, Dispensed: 50 mL bag, Site: #1 right wrist. Medication Ordered: Ceftriaxone IV 1 gm/50mL (NOW).
--- NOTE | 2016-07-29 13:00 | ED MED RECONCILIATION SUMMARY ---
Patient: OK BUSCH Medication Reconciliation Report [facility] VisitID: [id number] [address] [place] [address] 21y, F Registration Date/Time: 07/28/2016 Weight: 54.4 kg Height/Length: 64 in. BMI: 20.6 ALLERGIES: None The patient's Home Medications are listed below: NONE. The source(s) of the original Home Medication information: Not obtained. The following Medications were given to the patient in the Emergency Department: IV NS IV Fluids bolus 1000 mL over 1 hour(s), administered: 07/28/2016 7:15:00 PM Toradol [IVP] IVP 30 mg, administered: 07/28/2016 7:20:00 PM Ceftriaxone [IVPB] IVPB bolus 0, then 1 gm 150 mL/hr, administered: 07/28/2016 9:45:00 PM The following Medications were prescribed to the patient: None.
--- NOTE | 2016-07-29 13:00 | ED MED RECONCILIATION SUMMARY ---
Patient: OK BUSCH Medication Reconciliation Report [facility] VisitID: [id number] [address] [place] [address] 21y, F Registration Date/Time: 07/28/2016 Weight: 54.4 kg Height/Length: 64 in. BMI: 20.6 ALLERGIES: None The patient's Home Medications are listed below: NONE. The source(s) of the original Home Medication information: Not obtained. The following Medications were given to the patient in the Emergency Department: IV NS IV Fluids bolus 1000 mL over 1 hour(s), administered: 07/28/2016 7:15:00 PM Toradol [IVP] IVP 30 mg, administered: 07/28/2016 7:20:00 PM Ceftriaxone [IVPB] IVPB bolus 0, then 1 gm 150 mL/hr, administered: 07/28/2016 9:45:00 PM The following Medications were prescribed to the patient: None.
[2016-07-29 14:22] VITALS: BP 107/54
[2016-07-29 18:16] VITALS: BP 115/83
[2016-07-29 22:34] VITALS: BP 111/65
[2016-07-30 02:17] VITALS: BP 107/70
[2016-07-30 07:12] VITALS: BP 110/74
--- NOTE | 2016-07-30 08:39 | Progress Note ---
Subjective General denies cough,heomptysis, chest pain or shorntess of breath no nausea or vomiting Physical Exam Vital Signs / I&Os Vital Signs Date Time Temp Pulse Resp B/P Pulse O2 O2 Flow FiO2 Ox Delivery Rate 07/30 0712 97.5 94 16 110/74 96 Room Air 0.0 07/30 0217 98.1 92 14 107/70 99 Room Air 0.0 07/29 2234 98.4 103 16 111/65 93 Room Air 0.0 07/29 1944 Room Air 07/29 1816 98.1 85 18 115/83 99 07/29 1422 88 18 107/54 99 07/29 1204 104 97 07/29 1156 98.1 07/29 1142 98.1 106 18 118/77 99 Room Air 07/29 0954 4.0 07/29 0858 4.0 I&O 07/30 0000 07/29 1600 07/29 0800 Intake Total 2443 680 3690 Output Total 1700 1250 525 Balance 743 -570 3165 General Appearance Alert, Oriented X3, Cooperative, No acute distress Lungs decreased breath sounds right base Cardiovascular Regular rate and rhythm, Normal S1 and S2, No murmurs, gallops, rubs Abdomen Soft, No tenderness, No guarding, No rebound, negative murphys sign, no tenderness in right lower quadrant Extremities No cyanosis, No clubbing, Normal pulses, Larry's sign negative Neurological No lateralizing signs LAB Results Laboratory Tests 07/30 0530 Chemistry Plasma Sodium (136 - 145 mmol/L) 142 Plasma Potassium (3.5 - 5.1 mmol/L) 4.5 Plasma Chloride (98 - 107 mmol/L) 109 CO2 (Enzymatic) (21 - 32 mmol/L) 23 BUN (7 - 18 mg/dL) 5 Creatinine (0.6 - 1.3 mg/dL) 0.4 Est GFR ( Amer) (mL/min) >60 Est GFR (Non-Af Amer) (mL/min) >60 Glucose (70 - 110 mg/dL) 94 Plasma Calcium (8.5 - 10.1 mg/dL) 8.4 Total Bilirubin (0.0 - 1.0 mg/dL) 0.2 AST (15 - 37 U/L) 31 ALT (12 - 78 U/L) 39 Alkaline Phosphatase (46 - 116 U/L) 83 Total Protein (6.4 - 8.2 g/dL) 5.2 Albumin (3.3 - 5.0 g/dL) 2.1 Hematology WBC (4.5 - 11.5 K/uL) 21.6 RBC (4.00 - 5.20 M/uL) 4.08 Hgb (12.0 - 16.0 gm/dL) 11.4 Hct (36.0 - 46.0 %) 32.8 MCV (80 - 100 fL) 81 MCH (26 - 34 pg) 28 RDW (11.6 - 14.8 %) 13.1 Neut % (Auto) (50 - 75 %) 58.5 Lymph % (Auto) (25 - 40 %) 24.5 [place] % (Auto) (3 - 14 %) 13.9 Eos % (Auto) (0 - 4 %) 2.7 Baso % (Auto) (0 - 2 %) 0.4 Plt Count, EDTA (150 - 400 K/uL) 483 PUBS MCHC (31 - 37 g/dL) 35 Assessment and Plan Problem List 1. Sepsis Plan continue rocephin and zithromax. Add vancomcyin IV. Blood cultures x 2 sets groqing staph aureus Patient at high risk for sepsis secondary to asplenia. repeat blood culutres. check lactic acid maria victoria patient has a history of suvstance abuse-- she says she inhales meth, denies IV drug. will obtain echo since she has staph auresu bactermia repeat labs in am patient advised to quit smoking. will place on nicotine patch patient does not remember if or when she got a pneumovax. Will give pneumovax shot 2. Pneumonia 3. Asplenia 4. Substance abuse E&M Codes Rounding: Inpt-Moderate/[id number]
[2016-07-30 10:49] VITALS: BP 110/62
[2016-07-30 13:25] VITALS: BP 115/94
[2016-07-30 18:13] VITALS: BP 125/75
[2016-07-30 22:33] VITALS: BP 102/61
[2016-07-31 02:07] VITALS: BP 124/71
[2016-07-31 08:00] VITALS: BP 121/68
[2016-07-31 11:27] VITALS: BP 136/71
--- NOTE | 2016-07-31 12:43 | DIAGNOSTIC IMAGING REPORT ---
REFERRING PHYSICIAN/PROVIDER: Keagan Niño MD CONSULTING CIVIL DESIGNER: Gautam Galvan MD PROCEDURE: M-mode 2D echocardiography with spectral and color flow Doppler TECHNICAL QUALITY: Fair INDICATION: R/O ENDOCARDITIS RHYTHM DURING PROCEDURE: Sinus tachycardia INTERPRETATIONS: LEFT VENTRICLE: There is normal left ventricular size and systolic function. The calculated ejection fraction was 60%. There is normal diastolic function noted RIGHT VENTRICLE: Normal right ventricular size and systolic function ATRIA: Mild left atrial enlargement, LA volume index = 36 ml/m2. Normal right atrial size. Normal right and left atrial pressure. MITRAL VALVE: No significant mitral stenosis. Trace mitral regurgitation. No evidence of a vegetation or thrombus. AORTIC VALVE: Trileaflet aortic valve with no aortic stenosis. There is trace aortic regurgitation. No evidence of a vegetation or thrombus TRICUSPID VALVE: Normal appearing tricuspid valve with trace tricuspid regurgitation. Normal estimated right ventricular systolic pressure (RVSP = 29 mmHg). No evidence of a vegetation or thrombus. PULMONIC VALVE: Trace tricuspid regurgitation. No evidence of a vegetation or thrombus. GREAT VESSELS: Normal sized aortic root. PERICARDIUM: No significant pericardial effusion IMPRESSION: 1. Normal biventricular size and systolic function 2. Mild left atrial enlargement 3. No significant valvular abnormalities 4. Normal estimated right ventricular systolic pressure
[2016-07-31 14:20] VITALS: BP 103/55
[2016-07-31 18:33] VITALS: BP 108/76
--- NOTE | 2016-07-31 19:16 | Progress Note ---
Subjective General Patient seen and examined. Patient has no complaints at the moment except for heroin withdrawal symptoms. Patient otherwise is doing well. Constitutional Chills, Sweats. Denies: Fever, Weakness, Malaise, Other. Eyes Denies: Pain, Vision Change, Conjunctival Inflammation, Eyelid Inflammation, Redness, Other. ENT Denies: Ear Pain, Ear Discharge, Nose Pain, Nasal Discharge, Nasal Congestion, Mouth Pain, Mouth Swelling, Throat Pain, Throat Swelling, Other. Respiratory Denies: Cough, Dry, SOB w/exertion, Wheezing, Hemoptysis, Pleuritic Pain, Sputum , Other. Cardiovascular Denies: Chest Pain, Palpitations, Orthopnea, PND, Edema, Light-headedness, Other. Gastrointestinal Denies: Nausea, Vomiting, Abdominal Pain, Diarrhea, Constipation, Melena, Hematochezia, Other. Genitourinary Denies: Dysuria, Frequency, Incontinence, Hematuria, Retention, Other. Musculoskeletal Denies: Neck Pain, Shoulder Pain, Arm Pain, Back Pain, Hand Pain, Leg Pain, Foot Pain, Other. Neurological Denies: Weakness, Numbness, Incoordination, Change in speech, Confusion, Seizures, Other. Physical Exam Vital Signs / I&Os Vital Signs Date Time Temp Pulse Resp B/P Pulse O2 O2 Flow FiO2 Ox Delivery Rate 07/31 1833 98.2 86 18 108/76 94 Room Air 07/31 1420 98.4 85 20 103/55 100 Room Air 07/31 1127 97.9 107 20 136/71 96 Room Air 0.0 07/31 0800 98.8 107 15 121/68 98 Room Air 0.0 07/31 0207 98.4 76 18 124/71 97 Room Air 07/30 2233 97.3 88 20 102/61 95 Room Air 07/30 2100 Room Air I&O 07/30 0800 07/30 1600 07/31 0000 Intake Total 0491 600 5086 Output Total 1400 1700 1700 Balance 387 -860 1225 General Appearance Alert, Oriented X3, No acute distress HEENT Atraumatic, PERRLA, Moist mucous membranes Lungs Clear to auscultation Neck No JVD, No masses Cardiovascular Regular rate and rhythm, Normal S1 and S2 Abdomen Soft, No tenderness, No guarding Extremities No clubbing, No edema, No tenderness Skin - evidence of injection sites without much else Neurological Normal speech, Normal tone, Cranial nerves intact, Strength 5/5 x4 ext's Psych/Mental Status Mental status normal LAB Results Laboratory Tests 07/31 07/31 0415 1327 Hematology WBC (4.5 - 11.5 K/uL) 24.1 RBC (4.00 - 5.20 M/uL) 4.18 Hgb (12.0 - 16.0 gm/dL) 11.7 Hct (36.0 - 46.0 %) 33.6 MCV (80 - 100 fL) 81 MCH (26 - 34 pg) 28 RDW (11.6 - 14.8 %) 12.6 Neut % (Auto) (50 - 75 %) 71.7 Lymph % (Auto) (25 - 40 %) 16.0 [place] % (Auto) (3 - 14 %) 9.6 Eos % (Auto) (0 - 4 %) 2.1 Baso % (Auto) (0 - 2 %) 0.6 Plt Count, EDTA (150 - 400 K/uL) 579 PUBS MCHC (31 - 37 g/dL) 35 Toxicology Vancomycin Trough (10.0 - 20.0 ug/mL) 9.8 Assessment and Plan Problem List 1. Pneumonia Plan - pt is being treated for ca pneumonia - currently patient is not making leaps and bounds in terms of improvement - blood cultures are growing MRSA - will c/w antibiotics as Vancomycin - currently on day 2 of vanco and day 3 of antibiotics as a whole - will await results of echo cardiogram - if no significant improvement will repeat blood cultures tomorrow 2. Asplenia Plan - pt recieved pneumococcal vaccine 3. Substance abuse Plan - will give patient material for substance abuse treatment and methadone clinics - will provide with methadone 20 mg bid
[2016-07-31 22:28] VITALS: BP 128/88
[2016-08-01 02:10] VITALS: BP 89/52
[2016-08-01 06:53] VITALS: BP 112/69
[2016-08-01 11:01] VITALS: BP 111/66
[2016-08-01 13:34] VITALS: BP 101/63
[2016-08-01 22:51] VITALS: BP 111/74
[2016-08-02 02:14] VITALS: BP 100/60
[2016-08-02 06:45] VITALS: BP 102/63
--- NOTE | 2016-08-02 09:41 | Progress Note ---
Subjective General Patient seen and examined, patient is not having any complaints and her exam is relatively benign. Patients white blood cell count is persistenly elevated however it is trending down. Constitutional Denies: Fever, Chills, Sweats, Weakness, Malaise, Other. Eyes Denies: Pain, Vision Change, Conjunctival Inflammation, Eyelid Inflammation, Redness, Other. Respiratory Denies: Cough, Dry, SOB w/exertion, Wheezing, Hemoptysis, Pleuritic Pain, Sputum , Other. Cardiovascular Denies: Chest Pain, Palpitations, Orthopnea, PND, Edema, Light-headedness, Other. Genitourinary Denies: Dysuria, Frequency, Incontinence, Hematuria, Retention, Other. Musculoskeletal Denies: Neck Pain, Shoulder Pain, Arm Pain, Back Pain, Hand Pain, Leg Pain, Foot Pain, Other. Skin Denies: Rash, Lesions, Jaundice, Bruising, Other. Neurological Denies: Weakness, Numbness, Incoordination, Change in speech, Confusion, Seizures, Other. Physical Exam Vital Signs / I&Os Vital Signs Date Time Temp Pulse Resp B/P Pulse O2 O2 Flow FiO2 Ox Delivery Rate 08/02 0645 98.4 75 17 102/63 92 Room Air 08/02 0214 98.4 78 18 100/60 93 Room Air 08/01 2251 98.4 76 18 111/74 90 Room Air 08/01 2100 Room Air 08/01 1334 98.2 79 19 101/63 93 Room Air 08/01 1101 98.8 93 19 111/66 92 Room Air 08/01 1100 Room Air I&O 08/01 0800 08/01 1600 08/02 0000 Intake Total 4093 484 2459 Output Total 1100 1350 750 Balance 140 -890 986 General Appearance Alert, Oriented X3, No acute distress HEENT Atraumatic, PERRLA Lungs Clear to auscultation, Normal air movement Neck No JVD, No masses Cardiovascular Regular rate and rhythm, Normal S1 and S2, No murmurs, gallops, rubs Abdomen Soft, No tenderness, No masses, No hepatosplenomegaly Extremities No cyanosis, No edema, Normal pulses, No tenderness Skin - some evidence of previous injection sites Neurological Normal gait, Normal speech, Normal tone, Cranial nerves intact, Strength 5/5 x4 ext's, No lateralizing signs Psych/Mental Status Mood normal LAB Results Laboratory Tests 08/02 512 Chemistry Plasma Sodium (136 - 145 mmol/L) 140 Plasma Potassium (3.5 - 5.1 mmol/L) 4.0 Plasma Chloride (98 - 107 mmol/L) 104 CO2 (Enzymatic) (21 - 32 mmol/L) 27 BUN (7 - 18 mg/dL) 6 Creatinine (0.6 - 1.3 mg/dL) 0.5 Est GFR ( Amer) (mL/min) >60 Est GFR (Non-Af Amer) (mL/min) >60 Glucose (70 - 110 mg/dL) 85 Plasma Calcium (8.5 - 10.1 mg/dL) 8.9 Total Bilirubin (0.0 - 1.0 mg/dL) 0.2 AST (15 - 37 U/L) 125 ALT (12 - 78 U/L) 158 Alkaline Phosphatase (46 - 116 U/L) 213 Total Protein (6.4 - 8.2 g/dL) 6.3 Albumin (3.3 - 5.0 g/dL) 2.4 Hematology WBC (4.5 - 11.5 K/uL) 19.7 RBC (4.00 - 5.20 M/uL) 4.30 Hgb (12.0 - 16.0 gm/dL) 11.9 Hct (36.0 - 46.0 %) 34.9 MCV (80 - 100 fL) 81 MCH (26 - 34 pg) 28 RDW (11.6 - 14.8 %) 12.9 Neut % (Auto) (50 - 75 %) Pending Lymph % (Auto) (25 - 40 %) Pending [place] % (Auto) (3 - 14 %) Pending Band Neutrophils % (0 - 8 %) Pending Plt Count, EDTA (150 - 400 K/uL) 766 PUBS MCHC (31 - 37 g/dL) 34 Assessment and Plan Problem List 1. Pneumonia Plan - Pt has phsyical improvement from her initial diagnosis of pneumonia - however patient still has a persitently elevated white blood cell count - will switch patient to zyvox - will continue to trend wbc - if patient continues not have persistent leukocytosis will get an echocardiogram 2. Asplenia Plan - pt has already recieved pneumococcal vaccine - no further intervention at the moment 3. Substance abuse Plan - will provide information for methadone clinics and substance abuse centers upon discharge
[2016-08-02 11:13] VITALS: BP 109/74
[2016-08-02 14:47] VITALS: BP 107/67
[2016-08-02 18:19] VITALS: BP 111/65
[2016-08-02 22:27] VITALS: BP 118/57
[2016-08-03 02:01] VITALS: BP 112/54
[2016-08-03 07:00] VITALS: BP 111/52
[2016-08-03 14:00] VITALS: BP 128/75
--- NOTE | 2016-08-03 16:22 | Progress Note ---
Subjective General Patient seen and examined. Patient is doing well this morning. 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 Patient additionally does not have any evidence of any active infection. Otherwise arrgnements are being made to have the patient continue antibiotic therapy as an out patient. Constitutional Denies: Fever, Chills, Sweats, Weakness, Malaise, Other. Eyes Denies: Pain, Vision Change, Conjunctival Inflammation, Eyelid Inflammation, Redness, Other. Respiratory Denies: Cough, Dry, SOB w/exertion, Wheezing, Hemoptysis, Pleuritic Pain, Sputum , Other. Cardiovascular Denies: Chest Pain, Palpitations, Orthopnea, PND, Edema, Light-headedness, Other. Gastrointestinal Denies: Nausea, Vomiting, Abdominal Pain, Diarrhea, Constipation, Melena, Hematochezia, Other. Genitourinary Denies: Dysuria, Frequency, Incontinence, Hematuria, Retention, Other. Musculoskeletal Denies: Neck Pain, Shoulder Pain, Arm Pain, Back Pain, Hand Pain, Leg Pain, Foot Pain, Other. Skin Denies: Rash, Lesions, Jaundice, Bruising, Other. Neurological Denies: Weakness, Numbness, Incoordination, Change in speech, Confusion, Seizures, Other. Physical Exam Vital Signs / I&Os Vital Signs Date Time Temp Pulse Resp B/P Pulse O2 O2 Flow FiO2 Ox Delivery Rate 08/03 1400 98.2 83 18 128/75 99 Room Air 08/03 0927 Room Air 08/03 0700 97.9 87 18 111/52 93 Room Air 08/03 0201 98.2 80 18 112/54 95 Room Air 08/02 2227 98.1 91 18 118/57 93 Room Air 08/02 2040 Room Air 08/02 1819 98.4 87 19 111/65 97 Room Air I&O 08/02 0800 08/02 1600 08/03 0000 Intake Total 7345 818 6444 Output Total 9688 502 3185 Balance 761 -200 2125 General Appearance Alert, Oriented X3, No acute distress HEENT Atraumatic, Moist mucous membranes Lungs Clear to auscultation, Normal air movement Neck No JVD, No masses Cardiovascular Regular rate and rhythm, Normal S1 and S2, No murmurs, gallops, rubs Abdomen Soft, No tenderness, No rebound, No masses, No hepatosplenomegaly Extremities No edema, Normal pulses, No tenderness Skin No Breakdown, No Significant Lesions Neurological Normal gait, Normal tone, Cranial nerves intact, No lateralizing signs LAB Results Laboratory Tests 08/03 08/03 0540 0540 Chemistry Plasma Sodium (136 - 145 mmol/L) 141 Plasma Potassium (3.5 - 5.1 mmol/L) 4.7 Plasma Chloride (98 - 107 mmol/L) 105 CO2 (Enzymatic) (21 - 32 mmol/L) 29 BUN (7 - 18 mg/dL) 7 Creatinine (0.6 - 1.3 mg/dL) 0.6 Est GFR ( Amer) (mL/min) >60 Est GFR (Non-Af Amer) (mL/min) >60 Glucose (70 - 110 mg/dL) 94 Plasma Calcium (8.5 - 10.1 mg/dL) 8.8 Total Bilirubin (0.0 - 1.0 mg/dL) 0.2 AST (15 - 37 U/L) 265 ALT (12 - 78 U/L) 220 Alkaline Phosphatase (46 - 116 U/L) 301 Total Protein (6.4 - 8.2 g/dL) 5.9 Albumin (3.3 - 5.0 g/dL) 2.5 Procalcitonin (0 - 0.5 ng/mL) <0.5 Hematology WBC (4.5 - 11.5 K/uL) 21.0 RBC (4.00 - 5.20 M/uL) 4.21 Hgb (12.0 - 16.0 gm/dL) 11.7 Hct (36.0 - 46.0 %) 33.9 MCV (80 - 100 fL) 81 MCH (26 - 34 pg) 28 RDW (11.6 - 14.8 %) 13.0 Neut % (Auto) (50 - 75 %) 48 Lymph % (Auto) (25 - 40 %) 38 [place] % (Auto) (3 - 14 %) 1 Eos % (Auto) (0 - 4 %) 4 Baso % (Auto) (0 - 2 %) 0 Band Neutrophils % (0 - 8 %) 9 Metamyelocytes % (0 - 1 %) 0 Myelocytes (0 - 1 %) 0 Other Cell Type THROMBOCYTOSIS Plt Count, EDTA (150 - 400 K/uL) 791 Microcytosis (manual) 1+ PUBS MCHC (31 - 37 g/dL) 35 Assessment and Plan Problem List 1. Pneumonia Plan - will complete a 14 day course for antibioitics - will make arrangements for patient to have out patient treatment with either oral formulary or with a picc line - pt would benefit from a course that wouldnt involve IV antibiotics - additionally it would be logistically more difficult to arrange iv antibiotics for the patient given her requirement - will follow up on results of inusrance approval 2. Asplenia Plan - the reason behind the patients persistent leukocystosis - no need for further management 3. Substance abuse Plan - will make referrals for substance abuse upon discharge - pt intends to not use heroin again
[2016-08-03 18:25] VITALS: BP 124/79
[2016-08-03 21:45] VITALS: BP 107/50
[2016-08-04 02:04] VITALS: BP 123/68; BP 98/59
[2016-08-04 07:34] VITALS: BP 103/50
[2016-08-04 11:05] VITALS: BP 105/66
[2016-08-04 11:14] VITALS: BP 127/68
[2016-08-04 13:44] VITALS: BP 121/74
[2016-08-04] MEDS ORDERED: ZYVOX200 MG/100 PO (14:35)
--- NOTE | 2016-08-04 14:38 | Provider's Discharge Care Plan ---
Problem, Goal, Plan Problem List 1. Pneumonia Instructions: Follow up as needed, Take meds as directed 2. Sepsis Instructions: - COMPLETE COURSE OF ANTIBIOITICS 3. Substance abuse Instructions: - PLEASE DO NOT DO HEROIN
--- NOTE | 2016-08-04 14:43 | Discharge Summary ---
Discharge Summary Report Admit Date 07/28/16 Discharge Date 08/04/16 Admission Diagnosis pneumonia Discharge Diagnosis pneumonia with mrsa bacteremia Brief History please refer to admission H&&P Hospital Course Patient was admitted for pneumonia. Patient was treated for community acquired pneumonia. Patient on day two of admission was seen to have MRSA bacteremia. Patient was treated with vancomycin and patient was beginning to improve. Patient had a persistenly elevated white blood cell count, however upon further investigation patient was seen to have a normal pro- calcitonin so her white blood cell count was attributed to her splenectomy. Patient continued to improve and decisions were made to discharge the patient. Patient will continue another 7 days of antibioitics. Patient will follow up with her pmd as an outpatient. Patient was given referrals for opioid treatment centers. General Appearance Alert, Oriented X3, No acute distress HEENT PERRLA, Mucous membran moist/pink Lungs Normal air movement Abdomen Soft, No tenderness Skin No Breakdown Neurological Normal speech, Normal tone, Sensation intact Discharge Instructions/Meds - take antibioitics as directed - follow up with your pmd - you are at continued risk of the same problem with continuued heroin use, abstain from heroin
--- NOTE | 2016-09-01 21:52 | Progress Note ---
Subjective General Patient seen and examined. No acute events overnight. Patient is resting comfortably. Constitutional Denies: Fever, Chills, Sweats, Weakness, Malaise, Other. ENT Denies: Ear Pain, Ear Discharge, Nose Pain, Nasal Discharge, Nasal Congestion, Mouth Pain, Mouth Swelling, Throat Pain, Throat Swelling, Other. Respiratory Denies: Cough, Dry, SOB w/exertion, Wheezing, Hemoptysis, Pleuritic Pain, Sputum , Other. Cardiovascular Denies: Chest Pain, Palpitations, Orthopnea, PND, Edema, Light-headedness, Other. Gastrointestinal Denies: Nausea, Vomiting, Abdominal Pain, Diarrhea, Constipation, Melena, Hematochezia, Other. Musculoskeletal Denies: Neck Pain, Shoulder Pain, Arm Pain, Back Pain, Hand Pain, Leg Pain, Foot Pain, Other. Skin Denies: Rash, Lesions, Jaundice, Bruising, Other. Physical Exam General Appearance Alert, Oriented X3, No acute distress Lungs Clear to auscultation, Normal air movement Neck No JVD, No masses Cardiovascular Regular rate and rhythm, Normal S1 and S2, No murmurs, gallops, rubs Abdomen Normal bowel sounds, Soft Extremities No edema, Normal pulses, No tenderness Skin No Breakdown Neurological Normal gait, Normal speech, Sensation intact, Reflexes 2+ and equal , Cranial nerves intact, Strength 5/5 x4 ext's Assessment and Plan Problem List 1. Pneumonia Plan - no exacerbation noted - persistent leukocytosis noted - most likely secondary to patient asplenia - looking for insurance approval for oral Zyvox - will continue to trend labratory values 2. Asplenia Plan - vaccines given - no further managmenet warranted 3. Substance abuse Plan - pt given referal to substance abuse treatment
== END 2016-08-04 15:38 | disposition home or self-care (01) | DRG 871 ==
LOC: ED SRH 18:19 → TRANS SRH 21:20 → CC SRH 22:55 → ACUTE2 SRH 07-31 23:12
PROVIDERS: ADMIT Family Medicine
DX: A41.02 Sepsis due to Methicillin resistant Staphylococcus aureus (principal); J18.9 Pneumonia, unspecified organism; F11.23 Opioid dependence with withdrawal; Z90.81 Acquired absence of spleen; D58.0 Hereditary spherocytosis; E87.6 Hypokalemia; F11.10 Opioid abuse, uncomplicated; F17.210 Nicotine dependence, cigarettes, uncomplicated
CPT/HCPCS: 90004; 90065; 90070; 90074; 90100; 91295; 91400; 91583; 91643; 91672; 92031; 92132; 92235; 92530; 92760; 92761; 92762; 92763; 92764; 92765; 92766; 92767; 93004; 93070; 95059; 95061

== ENCOUNTER 2016-11-03 21:51 | Emergency (ER) | payer OTHER ==
[~2016-11-03 21:51] MED LIST: ZYVOX200 MG/100 PO
--- NOTE | 2016-11-03 22:37 | ED CLINICAL REPORT ---
Clinical Report - Physicians/Mid Levels [facility] [address] [place] [address] 11/03/2016 21:56 Patient: [place] BUSCH Time Seen: 2220. Arrived- By private vehicle. Historian- patient (Friend). HISTORY OF PRESENT ILLNESS Chief Complaint: SKIN RASH, LESION, BOIL and TENDER AREA. This started 7 days and is still present. It is described as painful. No recent medication or insect bite. (patient with pain to her right axilla over the last 7 days with swelling. Denies any drainage. Denies fevers. Denies ivda. Denies h/o similar or mrsa.). Similar symptoms previously: None. Recent medical care: Not recently seen/assessed. REVIEW OF SYSTEMS No fever, difficulty breathing, hoarseness, headache or nausea. All systems otherwise negative, except as recorded above. PAST HISTORY Problems: Pneumonia. STD - Sexually Transmitted Disease. Pelvic Pain. Diarrhea. Heart Disease. Substance Abuse. Cellulitis. Abscess. Sty. Acute Otalgia. Herpes Zoster. Myofascial Strain. Back Pain. Depression. Suicidal Ideation. Pt cut self at age 13/14. UTI - Urinary Tract Infection. Vomiting. Nausea. Cervical Strain. Tetanus Status. Spherocytosis. URI. Lifestyle / Substance Problems. Fall. Contusion. Immunizations. Skin Rash. LNMP - Last Normal Menstrual Period. Sferocytosis. Additional Surgeries: Adenoidectomy. Splenectomy. Tonsillectomy. Medications: None. Allergies: No Known Drug Allergy. SOCIAL HISTORY Smoker- current status unknown. No alcohol use or drug use. ADDITIONAL NOTES The nursing notes have been reviewed. PHYSICAL EXAM Appearance: Alert. CVS: Normal heart rate and rhythm. Heart sounds normal. Respiratory: No respiratory distress. Breath sounds normal. Skin: Skin warm. Erythema (3 by 4 cm area of fluctulance, erythema at r. axilla). Tender indurated area. Cellulitis. Skin rash present. Neuro: Oriented X 3. PROGRESS AND PROCEDURES Incision & Drainage of Abscess: Time-out completed immediately before the procedure. The abscess is located (R. axilla 2230). The risks of the procedure, benefits and alternatives were explained. Consent was obtained. Local anesthesia provided using 1% lidocaine with epi. Skin cleansed with Betadine. A moderate amount of pus was drained. Cavity was packed with gauze. A dressing was applied. Course of Care: Patient with good distal sensation. No osseous tenderness. No lymphangitic streaking. Unsure of history of MRSA. Patient is afebrile , mild tachycardia noted. Denies IV drug abuse. Patient is stable. Patient given first dose of antibiotics, will cover for MRSA. Patient is stable. Symptoms better. Patient/family counseled. Disposition: Discharged. Condition: good. CLINICAL IMPRESSION Multiple deep abscesses to the right axilla with incision and drainage. INSTRUCTIONS (warm packs follow up with pcp/ chc or in ER in 2-3 days for packing removal/ possible re-packing Address: [address] [place] [id number] ). Warnings: Further evaluation is necessary. Prescription Medications: Hydrocodone/APAP 5mg / 325mg: take 1 orally every 6 hours as needed for pain. Dispense ten (10). No refill. Bactrim DS 800 mg / 160 mg: take 1 tablet orally every 12 hours for 10 days. No refill. Substitution is permissible. Keflex 500 mg: take 1 capsule orally every 8 hours for 10 days. No refill. Substitution is permissible. (Electronically signed by Linsey Robles P.A.-C 11/03/2016 23:32)
--- NOTE | 2016-11-03 22:37 | ED ORDER SUMMARY ---
..... Patient: OK BUSCH OrderSheet [facility] VisitID: [id number] [address] [place] [address] 21y, F Registration Date/Time: 11/03/2016 ORDER SHEET Weight: 54.4 kg (stated) Allergies: No Known Drug Allergy GENERAL ORDERS: MEDICATION ORDERS: Tdap IM 0.5 mL (NOW, per protocol) (22:33 11/03/2016 EKoroleva P.A.-C) (Ack 22:41 RCollier R.N.) (23:31 omanelli R.N.) Hydrocodone-APAP PO 5/325 mg (NOW, HIGH ALERT MEDICATION) (22:34 11/03/2016 EKoroleva P.A.-C) (Ack 22:41 RCollier R.N.) (23:32 omanelli R.N.) Bactrim DS PO (Tablet 800-160 mg) 1 tab (NOW) (22:34 11/03/2016 EKoroleva P.A.-C) (Ack 22:41 RCollier R.N.) (23:33 omanelli R.N.) Keflex PO 500 mg (NOW) (22:34 11/03/2016 EKoroleva P.A.-C) (Ack 22:41 RCollier R.N.) (23:34 JRomanelli R.N.) IV FLUIDS: ORDER SHEET NOTES: [Electronically signed by Linsey Robles P.A.-C (23:32 11/03/2016)] [Electronically signed by Theodore Hussein R.N. (23:39 11/03/2016)] [Electronically locked/signed by Theodore Hussein R.N. (23:39 11/03/2016)]
--- NOTE | 2016-11-03 22:37 | ED CLINICAL REPORT ---
Clinical Report - Physicians/Mid Levels [facility] [address] [place] [address] 11/03/2016 21:56 Patient: [place] BUSCH Time Seen: 2220. Arrived- By private vehicle. Historian- patient (Friend). HISTORY OF PRESENT ILLNESS Chief Complaint: SKIN RASH, LESION, BOIL and TENDER AREA. This started 7 days and is still present. It is described as painful. No recent medication or insect bite. (patient with pain to her right axilla over the last 7 days with swelling. Denies any drainage. Denies fevers. Denies ivda. Denies h/o similar or mrsa.). Similar symptoms previously: None. Recent medical care: Not recently seen/assessed. REVIEW OF SYSTEMS No fever, difficulty breathing, hoarseness, headache or nausea. All systems otherwise negative, except as recorded above. PAST HISTORY Problems: Pneumonia. STD - Sexually Transmitted Disease. Pelvic Pain. Diarrhea. Heart Disease. Substance Abuse. Cellulitis. Abscess. Sty. Acute Otalgia. Herpes Zoster. Myofascial Strain. Back Pain. Depression. Suicidal Ideation. Pt cut self at age 13/14. UTI - Urinary Tract Infection. Vomiting. Nausea. Cervical Strain. Tetanus Status. Spherocytosis. URI. Lifestyle / Substance Problems. Fall. Contusion. Immunizations. Skin Rash. LNMP - Last Normal Menstrual Period. Sferocytosis. Additional Surgeries: Adenoidectomy. Splenectomy. Tonsillectomy. Medications: None. Allergies: No Known Drug Allergy. SOCIAL HISTORY Smoker- current status unknown. No alcohol use or drug use. ADDITIONAL NOTES The nursing notes have been reviewed. PHYSICAL EXAM Appearance: Alert. CVS: Normal heart rate and rhythm. Heart sounds normal. Respiratory: No respiratory distress. Breath sounds normal. Skin: Skin warm. Erythema (3 by 4 cm area of fluctulance, erythema at r. axilla). Tender indurated area. Cellulitis. Skin rash present. Neuro: Oriented X 3. PROGRESS AND PROCEDURES Incision & Drainage of Abscess: Time-out completed immediately before the procedure. The abscess is located (R. axilla 2230). The risks of the procedure, benefits and alternatives were explained. Consent was obtained. Local anesthesia provided using 1% lidocaine with epi. Skin cleansed with Betadine. A moderate amount of pus was drained. Cavity was packed with gauze. A dressing was applied. Course of Care: Patient with good distal sensation. No osseous tenderness. No lymphangitic streaking. Unsure of history of MRSA. Patient is afebrile , mild tachycardia noted. Denies IV drug abuse. Patient is stable. Patient given first dose of antibiotics, will cover for MRSA. Patient is stable. Symptoms better. Patient/family counseled. Disposition: Discharged. Condition: good. CLINICAL IMPRESSION Multiple deep abscesses to the right axilla with incision and drainage. INSTRUCTIONS (warm packs follow up with pcp/ chc or in ER in 2-3 days for packing removal/ possible re-packing Address: [address] [place] [id number] ). Warnings: Further evaluation is necessary. Prescription Medications: Hydrocodone/APAP 5mg / 325mg: take 1 orally every 6 hours as needed for pain. Dispense ten (10). No refill. Bactrim DS 800 mg / 160 mg: take 1 tablet orally every 12 hours for 10 days. No refill. Substitution is permissible. Keflex 500 mg: take 1 capsule orally every 8 hours for 10 days. No refill. Substitution is permissible. (Electronically signed by Linsey Robles P.A.-C 11/03/2016 23:32)
--- NOTE | 2016-11-03 22:37 | ED ORDER SUMMARY ---
..... Patient: [place] BUSCH OrderSheet [facility] VisitID: [id number] [address] [place] [address] 21y, F Registration Date/Time: 11/03/2016 ORDER SHEET Weight: 54.4 kg (stated) Allergies: No Known Drug Allergy GENERAL ORDERS: MEDICATION ORDERS: Tdap IM 0.5 mL (NOW, per protocol) (22:33 11/03/2016 EKoroleva P.A.-C) (Ack 22:41 RCollier R.N.) (23:31 omanelli R.N.) Hydrocodone-APAP PO 5/325 mg (NOW, HIGH ALERT MEDICATION) (22:34 11/03/2016 EKoroleva P.A.-C) (Ack 22:41 RCollier R.N.) (23:32 omanelli R.N.) Bactrim DS PO (Tablet 800-160 mg) 1 tab (NOW) (22:34 11/03/2016 EKoroleva P.A.-C) (Ack 22:41 RCollier R.N.) (23:33 omanelli R.N.) Keflex PO 500 mg (NOW) (22:34 11/03/2016 EKoroleva P.A.-C) (Ack 22:41 RCollier R.N.) (23:34 JRomanelli R.N.) IV FLUIDS: ORDER SHEET NOTES: [Electronically signed by Linsey Robles P.A.-C (23:32 11/03/2016)] [Electronically signed by Theodore Hussein R.N. (23:39 11/03/2016)] [Electronically locked/signed by Theodore Hussein R.N. (23:39 11/03/2016)]
--- NOTE | 2016-11-03 22:37 | ED NURSING NOTES ---
Clinical Report - Nurses [facility] [address] [place] [address] 11/03/2016 21:56 [facility] [place] [id number] Triage time 22:00 Nov 03 2016. Acuity: LEVEL 3. Chief Complaint: SKIN LESION and . RUE. Alert. DARBY COMA SCORE: Twilight Coma Scale: 15- eyes open spontaneously (4); best verbal response- oriented x 4 (5); best motor response- obeys commands (6). --22:08 Theodore Hussein R.N. 22:00 11/03/16. BP: 130/83. HR: 104. RR: 16. O2 saturation: 100%. Temp: 99.2 F (oral). Pain level now: 09/26. --22:08 Theodore Hussein R.N. Weight: 54.4 kg stated. Height/Length: 64 inches Per Patient. BMI: 20.6. --22:03 Theodore Hussein R.N. Medications None. --22:05 Theodore Hussein R.N. Allergies No Known Drug Allergy. --22:06 Theodore Hussein R.N. Medication/allergy information source: the patient. --22:08 Theodore Hussein R.N. History Arrived by private vehicle. Historian: patient. Accompanied by friend. Primary physician (none). ( Abscess under (R) Arm). Reported as ((R) Axilla). Onset. (about 7 days ago). It is described as painful. Treatment SCIENTIFIC LABORATORY SUPERVISOR: None. SOCIAL HX: Heavy tobacco smoker (cigarette)- 1 pack per day. No alcohol use or drug use. No infectious disease exposure. ABUSE ASSESSMENT: No report of abuse. SELF HARM ASSESSMENT: A self harm assessment was performed. The patient answered "no" to the question "Have you recently felt down, depressed, or hopeless?" and "Have you noticed less interest or pleasure in doing things?". FALL RISK ASSESSMENT: Fall risk assessment completed. No fall risk identified. NUTRITIONAL RISK ASSESSMENT: The nutritional risk assessment revealed no deficiencies. FUNCTIONAL ASSESSMENT: Functional assessment: no impairments noted. LEARNING NEEDS ASSESSMENT: The learning needs assessment revealed no barriers. SKIN INTEGRITY ASSESSMENT: Skin integrity risk assessment completed. No skin integrity risk identified. --22:08 Theodore Hussein R.N. PROBLEMS: Pneumonia. STD - Sexually Transmitted Disease. Pelvic Pain. Diarrhea. Heart Disease. Substance Abuse. Cellulitis. Abscess. Sty. Acute Otalgia. Herpes Zoster. Myofascial Strain. Back Pain. Depression. Suicidal Ideation. Pt cut self at age 13/14. UTI - Urinary Tract Infection. Vomiting. Nausea. Cervical Strain. Spherocytosis. URI. Lifestyle / Substance Problems. Fall. Contusion. Immunizations. Skin Rash. Sferocytosis. --22: Theodore Hussein R.N. Pyelonephritis [RuleOut]. --22: Theodore Hussein R.N. ADDITIONAL SURGERIES: Adenoidectomy. Splenectomy. Tonsillectomy. --22: Theodore Hussein R.N. Interventions ID band on patient. To treatment room. --22:08 Theodore Hussein R.N. PHYSICAL ASSESSMENT Ambulatory to room. GENERAL / NEURO / PSYCH: Alert. Oriented X 4. HEENT: Mucous membranes are pink. RESPIRATORY: Respirations not labored. CVS: Pulses within normal limits. GI / : Abdomen nontender. SKIN: Skin is intact, warm and dry. Tenderness present in the right axilla. Erythema present in the right axilla. --22:09 Theodore Hussein R.N. NURSING PROGRESS NOTES Patient gowned. Reassurance given. Patient identifiers checked. Call light placed in reach of patient. Side rails up x 1. Bed placed in lowest position. Brakes of bed on. Patient ready for evaluation- chart flagged and ED physician notified. --22:10 Theodore Hussein R.N. 22:40. I & D: Incision and Drainage of abscess performed by ERAN. Assisted by one nurse. The abscess is located on the right axilla. Preparation: Incision and Drainage tray set up with 2% lidocaine. Procedure; a moderate amount of pus was drained. Cavity was irrigated with saline and packed with gauze. A dressing was applied. Post-procedure: she was stable. Estimated blood loss: 1 mL. Total time of assist / procedure: 15 minutes. --23:28 Theodore Hussein R.N. 22:45. Applied bulky dressing, following the application of antibiotic ointment (bacitracin). Secured with tape. --23:29 Theodore Hussein R.N. 22:40 11/03/2016 TDAP IM 0.5 mL given. (Lot#: [id number], expiration date: 09/22/2018, Cnc Programmer: sanofi pasteur). Given in the left deltoid. Allergies verified and confirmed 5 rights. Vaccine information statement provided to the patient. --23:31 Theodore Hussein R.N. 22:44 11/03/2016 Keflex (Cephalexin) PO Capsules 500 mg given. Allergies verified and confirmed 5 rights. --23:34 Theodore Hussein R.N. 22:45 11/03/2016 Hydrocodone-APAP (Hydrocodone-Acetaminophen) PO 5/325 mg Tablets 1 tab given. Allergies verified, confirmed 5 rights and sedative warning given to the patient. --23:32 Theodore Hussein R.N. 22:47 11/03/2016 Bactrim DS (Sulfamethoxazole-TMP DS) PO Tablets 1 tab given. Allergies verified and confirmed 5 rights. --23:33 Theodore Hussein R.N. DISPOSITION / DISCHARGE 22:55 11/03/16. BP: 134/83. HR: 98. RR: 16. O2 saturation: 98% on room air. Temp: 98.2 F. Pain level now: 6/10. Additional comments: r aXILLA PAIN. --23:36 Theodore Hussein R.N. Departure time: 2255. --23:37 Theodore Hussein R.N. 22:56. Condition at departure: improved. No learning barriers present. Discharge instructions provided and reviewed with the patient. Reviewed medication(s) (prescription given to pt). Reviewed wound care instructions. Reviewed referral to family practice for followup. Patient and enterprise account executive verbalized understanding. Written instructions provided in Bengali. The patient was discharged by the physician seo assistant. She was discharged home and accompanied by enterprise account executive. She left the Emergency Department ambulatory and via private vehicle. Vp Cardiovascular driving. --23:38 Theodroe Hussein R.N. Locked/Released at 11/03/2016 23:39 by Theodore Hussein R.N.
--- NOTE | 2016-11-03 22:37 | ED NURSING NOTES ---
Clinical Report - Nurses [facility] [address] [place] [address] 11/03/2016 21:56 [facility] [place] [id number] Triage time 22:00 Nov 03 2016. Acuity: LEVEL 3. Chief Complaint: SKIN LESION and . RUE. Alert. DARBY COMA SCORE: [place] Coma Scale: 15- eyes open spontaneously (4); best verbal response- oriented x 4 (5); best motor response- obeys commands (6). --22:08 Theodore Hussein R.N. 22:00 11/03/16. BP: 130/83. HR: 104. RR: 16. O2 saturation: 100%. Temp: 99.2 F (oral). Pain level now: 09/26. --22:08 Theodore Hussein R.N. Weight: 54.4 kg stated. Height/Length: 64 inches Per Patient. BMI: 20.6. --22:03 Theodore Hussein R.N. Medications None. --22:05 Theodore Hussein R.N. Allergies No Known Drug Allergy. --22:06 Theodore Hussein R.N. Medication/allergy information source: the patient. --22:08 Theodore Hussein R.N. History Arrived by private vehicle. Historian: patient. Accompanied by friend. Primary physician (none). ( Abscess under (R) Arm). Reported as ((R) Axilla). Onset. (about 7 days ago). It is described as painful. Treatment ENVIRONMENTAL SERVICES SUPERVISOR: None. SOCIAL HX: Heavy tobacco smoker (cigarette)- 1 pack per day. No alcohol use or drug use. No infectious disease exposure. ABUSE ASSESSMENT: No report of abuse. SELF HARM ASSESSMENT: A self harm assessment was performed. The patient answered "no" to the question "Have you recently felt down, depressed, or hopeless?" and "Have you noticed less interest or pleasure in doing things?". FALL RISK ASSESSMENT: Fall risk assessment completed. No fall risk identified. NUTRITIONAL RISK ASSESSMENT: The nutritional risk assessment revealed no deficiencies. FUNCTIONAL ASSESSMENT: Functional assessment: no impairments noted. LEARNING NEEDS ASSESSMENT: The learning needs assessment revealed no barriers. SKIN INTEGRITY ASSESSMENT: Skin integrity risk assessment completed. No skin integrity risk identified. --22:08 Theodore Hussein R.N. PROBLEMS: Pneumonia. STD - Sexually Transmitted Disease. Pelvic Pain. Diarrhea. Heart Disease. Substance Abuse. Cellulitis. Abscess. Sty. Acute Otalgia. Herpes Zoster. Myofascial Strain. Back Pain. Depression. Suicidal Ideation. Pt cut self at age 13/14. UTI - Urinary Tract Infection. Vomiting. Nausea. Cervical Strain. Spherocytosis. URI. Lifestyle / Substance Problems. Fall. Contusion. Immunizations. Skin Rash. Sferocytosis. --22: Theodore Hussein R.N. Pyelonephritis [RuleOut]. --22: Theodore Hussein R.N. ADDITIONAL SURGERIES: Adenoidectomy. Splenectomy. Tonsillectomy. --22: Theodore Hussein R.N. Interventions ID band on patient. To treatment room. --22:08 Theodore Hussein R.N. PHYSICAL ASSESSMENT Ambulatory to room. GENERAL / NEURO / PSYCH: Alert. Oriented X 4. HEENT: Mucous membranes are pink. RESPIRATORY: Respirations not labored. CVS: Pulses within normal limits. GI / : Abdomen nontender. SKIN: Skin is intact, warm and dry. Tenderness present in the right axilla. Erythema present in the right axilla. --22:09 Theodore Hussein R.N. NURSING PROGRESS NOTES Patient gowned. Reassurance given. Patient identifiers checked. Call light placed in reach of patient. Side rails up x 1. Bed placed in lowest position. Brakes of bed on. Patient ready for evaluation- chart flagged and ED physician notified. --22:10 Theodore Hussein R.N. 22:40. I & D: Incision and Drainage of abscess performed by ERAN. Assisted by one nurse. The abscess is located on the right axilla. Preparation: Incision and Drainage tray set up with 2% lidocaine. Procedure; a moderate amount of pus was drained. Cavity was irrigated with saline and packed with gauze. A dressing was applied. Post-procedure: she was stable. Estimated blood loss: 1 mL. Total time of assist / procedure: 15 minutes. --23:28 Theodore Hussein R.N. 22:45. Applied bulky dressing, following the application of antibiotic ointment (bacitracin). Secured with tape. --23:29 Theodore Hussein R.N. 22:40 11/03/2016 TDAP IM 0.5 mL given. (Lot#: [id number], expiration date: 09/22/2018, Dumpster Driver: sanofi pasteur). Given in the left deltoid. Allergies verified and confirmed 5 rights. Vaccine information statement provided to the patient. --23:31 Theodore Hussein R.N. 22:44 11/03/2016 Keflex (Cephalexin) PO Capsules 500 mg given. Allergies verified and confirmed 5 rights. --23:34 Theodore Hussein R.N. 22:45 11/03/2016 Hydrocodone-APAP (Hydrocodone-Acetaminophen) PO 5/325 mg Tablets 1 tab given. Allergies verified, confirmed 5 rights and sedative warning given to the patient. --23:32 Theodore Hussein R.N. 22:47 11/03/2016 Bactrim DS (Sulfamethoxazole-TMP DS) PO Tablets 1 tab given. Allergies verified and confirmed 5 rights. --23:33 Theodore Hussein R.N. DISPOSITION / DISCHARGE 22:55 11/03/16. BP: 134/83. HR: 98. RR: 16. O2 saturation: 98% on room air. Temp: 98.2 F. Pain level now: 6/10. Additional comments: r aXILLA PAIN. --23:36 Theodore Hussein R.N. Departure time: 2255. --23:37 Theodore Hussein R.N. 22:56. Condition at departure: improved. No learning barriers present. Discharge instructions provided and reviewed with the patient. Reviewed medication(s) (prescription given to pt). Reviewed wound care instructions. Reviewed referral to family practice for followup. Patient and sweatband perforator verbalized understanding. Written instructions provided in Greek. The patient was discharged by the physician environmental services assistant. She was discharged home and accompanied by sweatband perforator. She left the Emergency Department ambulatory and via private vehicle. Nailing Machine Operator driving. --23:38 Theodore Hussein R.N. Locked/Released at 11/03/2016 23:39 by Theodore Hussein R.N.
--- NOTE | 2016-11-03 23:39 | ED DISCHARGE INSTRUCTIONS ---
Patient: OK BUSCH General Instructions [facility] VisitID: [id number] [place] [address] 21y, F Registration Date/Time: 11/03/2016 Multiple deep abscesses to the right axilla with incision and drainage. INSTRUCTIONS (warm packs follow up with pcp/ chc or in ER in 2-3 days for packing removal/ possible re-packing Address: [place] [address] ). Warnings: Further evaluation is necessary. Prescription Medications: Hydrocodone/APAP 5mg / 325mg: take 1 orally every 6 hours as needed for pain. Dispense ten (10). No refill. Bactrim DS 800 mg / 160 mg: take 1 tablet orally every 12 hours for 10 days. No refill. Substitution is permissible. Keflex 500 mg: take 1 capsule orally every 8 hours for 10 days. No refill. Substitution is permissible. ADDITIONAL INFORMATION Abscess [Incision & Drainage] An abscess (sometimes called a boil) occurs when bacteria get trapped under the skin and begin to grow. Pus forms inside the abscess as the body responds to the bacteria. An abscess can occur with an insect bite, ingrown hair, blocked oil gland, pimple, cyst, or puncture wound. Treatment of your abscess has required an incision to drain the pus. If the abscess pocket was large, a gauze packing may have been inserted. This will need to be removed and possibly replaced on your next visit. Antibiotics are not required in the treatment of a simple abscess, unless the infection is spreading into the skin around the wound (known as cellulitis). Healing of the wound will take about one to two weeks depending on the size of the abscess. Healthy tissue will grow from the bottom and sides of the opening until it seals over. Home Care: The wound may drain for the first two days. Cover the wound with a clean dry dressing. If the dressing becomes soaked with blood or pus, change it. If a gauze packing was placed inside the abscess cavity, you may be advised to remove it yourself. You may do this in the shower. Once the packing is removed, you should wash the area in the shower or bath 3 to 4 times a day, until the skin opening has closed. If you were prescribed antibiotics, take them as directed until they are all gone. You may use acetaminophen (Tylenol) or ibuprofen (Motrin, Advil) to control pain, unless another pain medicine was prescribed. [ NOTE: If you have liver disease or ever had a stomach ulcer, talk with your doctor before using these medicines.] Follow Up with your doctor as advised by our staff. If a gauze packing was inserted in your wound, it should be removed in 1-2 days. Check your wound every day for the signs of worsening infection listed below. Get Prompt Medical Attention if any of the following occur: Increasing redness or swelling Red streaks in the skin leading away from the wound Increasing local pain or swelling Continued pus draining from the wound two days after treatment Fever of 100.4F (38C) or higher, or as directed by your healthcare provider Hydrocodone Bitartrate, Acetaminophen Oral tablet What is this medicine? ACETAMINOPHEN; HYDROCODONE (a set a CARLEY denia fen; ezequiel droe KOE done) is a pain reliever. It is used to treat mild to moderate pain. How should I use this medicine? Take this medicine by mouth. Swallow it with a full glass of water. Follow the directions on the prescription label. If the medicine upsets your stomach, take the medicine with food or milk. Do not take more than you are told to take. Talk to your cable swager regarding the use of this medicine in children. This medicine is not approved for use in children. What side effects may I notice from receiving this medicine? Side effects that you should report to your doctor or health life care planner as soon as possible: allergic reactions like skin rash, itching or hives, swelling of the face, lips, or tongue breathing problems confusion feeling faint or lightheaded, falls stomach pain yellowing of the eyes or skin Side effects that usually do not require medical attention (report to your doctor or health life care planner if they continue or are bothersome): nausea, vomiting stomach upset What may interact with this medicine? alcohol antihistamines isoniazid medicines for depression, anxiety, or psychotic disturbances medicines for sleep muscle relaxants naltrexone narcotic medicines (opiates) for pain phenobarbital ritonavir tramadol What if I miss a dose? If you miss a dose, take it as soon as you can. If it is almost time for your next dose, take only that dose. Do not take double or extra doses. Where should I keep my medicine? Keep out of the reach of children. This medicine can be abused. Keep your medicine in a safe place to protect it from theft. Do not share this medicine with anyone. Selling or giving away this medicine is dangerous and against the law. Store at room temperature between 15 and 30 degrees C (59 and 86 degrees F). Protect from light. Keep container tightly closed. Throw away any unused medicine after the expiration date. Discard unused medicine and used packaging carefully. Pets and children can be harmed if they find used or lost packages. What should I tell my health care provider before I take this medicine? They need to know if you have any of these conditions: brain tumor Crohn's disease, inflammatory bowel disease, or ulcerative colitis drink more than 3 alcohol-containing drinks per day drug abuse or addiction head injury heart or circulation problems kidney disease or problems going to the bathroom liver disease lung disease, asthma, or breathing problems an unusual or allergic reaction to acetaminophen, hydrocodone, other opioid analgesics, other medicines, foods, dyes, or preservatives or trying to get breast-feeding What should I watch for while using this medicine? Tell your doctor or health life care planner if your pain does not go away, if it gets worse, or if you have new or a different type of pain. You may develop tolerance to the medicine. Tolerance means that you will need a higher dose of the medicine for pain relief. Tolerance is normal and is expected if you take the medicine for a long time. Do not suddenly stop taking your medicine because you may develop a severe reaction. Your body becomes used to the medicine. This does NOT mean you are addicted. Addiction is a behavior related to getting and using a drug for a non-medical reason. If you have pain, you have a medical reason to take pain medicine. Your doctor will tell you how much medicine to take. If your doctor wants you to stop the medicine, the dose will be slowly lowered over time to avoid any side effects. You may get drowsy or dizzy when you first start taking the medicine or change doses. Do not drive, use machinery, or do anything that may be dangerous until you know how the medicine affects you. Stand or sit up slowly. There are different types of narcotic medicines (opiates) for pain. If you take more than one type at the same time, you may have more side effects. Give your health care provider a list of all medicines you use. Your doctor will tell you how much medicine to take. Do not take more medicine than directed. Call emergency for help if you have problems breathing. The medicine will cause constipation. Try to have a bowel movement at least every 2 to 3 days. If you do not have a bowel movement for 3 days, call your doctor or health life care planner. Too much acetaminophen can be very dangerous. Do not take Tylenol (acetaminophen) or medicines that contain acetaminophen with this medicine. Many non-prescription medicines contain acetaminophen. Always read the labels carefully. Sulfamethoxazole, Trimethoprim Oral tablet What is this medicine? SULFAMETHOXAZOLE; TRIMETHOPRIM or SMX-TMP (suhl fuh meth OK dolly zohl; trye METH oh prim) is a combination of a sulfonamide antibiotic and a second antibiotic, trimethoprim. It is used to treat or prevent certain kinds of bacterial infections. It will not work for colds, flu, or other viral infections. How should I use this medicine? Take this medicine by mouth with a full glass of water. Follow the directions on the prescription label. Take your medicine at regular intervals. Do not take it more often than directed. Do not skip doses or stop your medicine early. Talk to your cable swager regarding the use of this medicine in children. Special care may be needed. This medicine has been used in children as young as 2 months of age. What side effects may I notice from receiving this medicine? Side effects that you should report to your doctor or health life care planner as soon as possible: allergic reactions like skin rash or hives, swelling of the face, lips, or tongue breathing problems fever or chills, sore throat irregular heartbeat, chest pain joint or muscle pain pain or difficulty passing urine red pinpoint spots on skin redness, blistering, peeling or loosening of the skin, including inside the mouth unusual bleeding or bruising unusually weak or tired yellowing of the eyes or skin Side effects that usually do not require medical attention (report to your doctor or health life care planner if they continue or are bothersome): diarrhea dizziness headache loss of appetite nausea, vomiting nervousness What may interact with this medicine? Do not take this medicine with any of the following medications: aminobenzoate potassium dofetilide metronidazole This medicine may also interact with the following medications: ANGELA inhibitors like benazepril, enalapril, lisinopril, and ramipril cyclosporine digoxin diuretics indomethacin medicines for diabetes methenamine methotrexate phenytoin potassium supplements pyrimethamine sulfinpyrazone tricyclic antidepressants warfarin What if I miss a dose? If you miss a dose, take it as soon as you can. If it is almost time for your next dose, take only that dose. Do not take double or extra doses. Where should I keep my medicine? Keep out of the reach of children. Store at room temperature between 20 to 25 degrees C (68 to 77 degrees F). Protect from light. Throw away any unused medicine after the expiration date. What should I tell my health care provider before I take this medicine? They need to know if you have any of these conditions: anemia asthma being treated with anticonvulsants if you frequently drink alcohol containing drinks kidney disease liver disease low level of folic acid or [id number] dehydrogenase poor nutrition or malabsorption porphyria severe allergies thyroid disorder an unusual or allergic reaction to sulfamethoxazole, trimethoprim, sulfa drugs, other medicines, foods, dyes, or preservatives or trying to get breast-feeding What should I watch for while using this medicine? Tell your doctor or health life care planner if your symptoms do not improve. Drink several glasses of water a day to reduce the risk of kidney problems. Do not treat diarrhea with over the counter products. Contact your doctor if you have diarrhea that lasts more than 2 days or if it is severe and watery. This medicine can make you more sensitive to the sun. Keep out of the sun. If you cannot avoid being in the sun, wear protective clothing and use a sunscreen. Do not use sun lamps or tanning beds/booths. Cephalexin Monohydrate Oral tablet What is this medicine? CEPHALEXIN (sef a VANDANA in) is a cephalosporin antibiotic. It is used to treat certain kinds of bacterial infections It will not work for colds, flu, or other viral infections. How should I use this medicine? Take this medicine by mouth with a full glass of water. Follow the directions on the prescription label. This medicine can be taken with or without food. Take your medicine at regular intervals. Do not take your medicine more often than directed. Take all of your medicine as directed even if you think you are better. Do not skip doses or stop your medicine early. Talk to your cable swager regarding the use of this medicine in children. While this drug may be prescribed for selected conditions, precautions do apply. What side effects may I notice from receiving this medicine? Side effects that you should report to your doctor or health life care planner as soon as possible: allergic reactions like skin rash, itching or hives, swelling of the face, lips, or tongue breathing problems pain or trouble passing urine redness, blistering, peeling or loosening of the skin, including inside the mouth severe or watery diarrhea unusually weak or tired yellowing of the eyes, skin Side effects that usually do not require medical attention (report to your doctor or health life care planner if they continue or are bothersome): gas or heartburn genital or anal irritation headache joint or muscle pain nausea, vomiting What may interact with this medicine? probenecid some other antibiotics What if I miss a dose? If you miss a dose, take it as soon as you can. If it is almost time for your next dose, take only that dose. Do not take double or extra doses. There should be at least 4 to 6 hours between doses. Where should I keep my medicine? Keep out of the reach of children. Store at room temperature between 59 and 86 degrees F (15 and 30 degrees C). Throw away any unused medicine after the expiration date. What should I tell my health care provider before I take this medicine? They need to know if you have any of these conditions: kidney disease stomach or intestine problems, especially colitis an unusual or allergic reaction to cephalexin, other cephalosporins, penicillins, other antibiotics, medicines, foods, dyes or preservatives or trying to get breast-feeding What should I watch for while using this medicine? Tell your doctor or health life care planner if your symptoms do not begin to improve in a few days. Do not treat diarrhea with over the counter products. Contact your doctor if you have diarrhea that lasts more than 2 days or if it is severe and watery. If you have diabetes, you may get a false-positive result for sugar in your urine. Check with your doctor or health life care planner. You have been given the following additional information: Abscess, Incision And Drainage Hydrocodone Bitartrate, Acetaminophen Oral tablet Sulfamethoxazole, Trimethoprim Oral tablet Cephalexin Monohydrate Oral tablet (Electronically signed by KoroleLinsey virgen P.A.-C 11/03/2016 23:32)
--- NOTE | 2016-11-03 23:39 | ED MED RECONCILIATION SUMMARY ---
Patient: OK BUSCH Medication Reconciliation Report [facility] VisitID: [id number] [address] [place] [address] 21y, F Registration Date/Time: 11/03/2016 Weight: 54.4 kg Height/Length: 64 in. BMI: 20.6 ALLERGIES: No Known Drug Allergy The patient's Home Medications are listed below: NONE. The source(s) of the original Home Medication information: patient The following Medications were given to the patient in the Emergency Department: TDAP [IM] IM 0.5 mL, administered: 11/03/2016 10:40:00 PM Hydrocodone-APAP [PO] PO 1 tab, administered: 11/03/2016 10:45:00 PM Bactrim DS [PO] PO 1 tab, administered: 11/03/2016 10:47:00 PM Keflex [PO] PO 500 mg, administered: 11/03/2016 10:44:00 PM The following Medications were prescribed to the patient: Hydrocodone/APAP 5mg / 325mg: take 1 orally every 6 hours as needed for pain. Dispense ten (10). No refill. -- Linsey Robles, P.A.-C Bactrim DS 800 mg / 160 mg: take 1 tablet orally every 12 hours for 10 days. No refill. Substitution is permissible. -- Linsey Robles, P.A.-C Keflex 500 mg: take 1 capsule orally every 8 hours for 10 days. No refill. Substitution is permissible. -- Linsey Robles, P.A.-C
--- NOTE | 2016-11-03 23:39 | ED MAR SUMMARY ---
..... Medication Administration Record [facility] [address] [place] [address] [place] [address] Patient: [place] BUSCH Visit ID: [id number] 21y, F Weight: 54.4 kg Height/Length: 64 in BMI: 20.6 ALLERGIES: No Known Drug Allergy Given 22:40 11/03/2016 Theodore Hussein RKeonNKeon Medication Administered: TDAP [IM], Dose: 0.5 mL IM. Medication Ordered: Tdap IM 0.5 mL (NOW, per protocol). Given 22:44 11/03/2016 Theodore Hussein R.N. Medication Administered: KEFLEX [PO] (CEPHALEXIN), Dose: 500 mg Capsules PO. Medication Ordered: Keflex PO 500 mg (NOW). Given 22:45 11/03/2016 Theodore Hussein RKeonN. Medication Administered: HYDROCODONE-APAP [PO] (HYDROCODONE-ACETAMINOPHEN), Dose: 1 tab 5/325 mg Tablets PO. Medication Ordered: Hydrocodone-APAP PO 5/325 mg (NOW, HIGH ALERT MEDICATION). Given 22:47 11/03/2016 Theodore Hussein RKeonN. Medication Administered: BACTRIM DS [PO] (SULFAMETHOXAZOLE-TMP DS), Dose: 1 tab Tablets PO. Medication Ordered: Bactrim DS PO (Tablet 800-160 mg) 1 tab (NOW).
--- NOTE | 2016-11-03 23:39 | ED MED RECONCILIATION SUMMARY ---
Patient: OK BUSCH Medication Reconciliation Report [facility] VisitID: [id number] [address] [place] [address] 21y, F Registration Date/Time: 11/03/2016 Weight: 54.4 kg Height/Length: 64 in. BMI: 20.6 ALLERGIES: No Known Drug Allergy The patient's Home Medications are listed below: NONE. The source(s) of the original Home Medication information: patient The following Medications were given to the patient in the Emergency Department: TDAP [IM] IM 0.5 mL, administered: 11/03/2016 10:40:00 PM Hydrocodone-APAP [PO] PO 1 tab, administered: 11/03/2016 10:45:00 PM Bactrim DS [PO] PO 1 tab, administered: 11/03/2016 10:47:00 PM Keflex [PO] PO 500 mg, administered: 11/03/2016 10:44:00 PM The following Medications were prescribed to the patient: Hydrocodone/APAP 5mg / 325mg: take 1 orally every 6 hours as needed for pain. Dispense ten (10). No refill. -- Linsey Robles, P.A.-C Bactrim DS 800 mg / 160 mg: take 1 tablet orally every 12 hours for 10 days. No refill. Substitution is permissible. -- Linsey Robles, P.A.-C Keflex 500 mg: take 1 capsule orally every 8 hours for 10 days. No refill. Substitution is permissible. -- Linsey Robles, P.A.-C
--- NOTE | 2016-11-03 23:39 | ED MAR SUMMARY ---
..... Medication Administration Record [facility] [address] [place] [address] Patient: [place] BUSCH Visit ID: [id number] 21y, F Weight: 54.4 kg Height/Length: 64 in BMI: 20.6 ALLERGIES: No Known Drug Allergy Given 22:40 11/03/2016 Theodore Hussein RKeonNKeon Medication Administered: TDAP [IM], Dose: 0.5 mL IM. Medication Ordered: Tdap IM 0.5 mL (NOW, per protocol). Given 22:44 11/03/2016 Theodore Hussein R.N. Medication Administered: KEFLEX [PO] (CEPHALEXIN), Dose: 500 mg Capsules PO. Medication Ordered: Keflex PO 500 mg (NOW). Given 22:45 11/03/2016 Theodore Hussein RKeonN. Medication Administered: HYDROCODONE-APAP [PO] (HYDROCODONE-ACETAMINOPHEN), Dose: 1 tab 5/325 mg Tablets PO. Medication Ordered: Hydrocodone-APAP PO 5/325 mg (NOW, HIGH ALERT MEDICATION). Given 22:47 11/03/2016 Theodore Hussein RKeonN. Medication Administered: BACTRIM DS [PO] (SULFAMETHOXAZOLE-TMP DS), Dose: 1 tab Tablets PO. Medication Ordered: Bactrim DS PO (Tablet 800-160 mg) 1 tab (NOW).
--- NOTE | 2016-11-03 23:39 | ED DISCHARGE INSTRUCTIONS ---
Patient: OK BUSCH General Instructions [facility] VisitID: [id number] [place] [address] 21y, F Registration Date/Time: 11/03/2016 Multiple deep abscesses to the right axilla with incision and drainage. INSTRUCTIONS (warm packs follow up with pcp/ chc or in ER in 2-3 days for packing removal/ possible re-packing Address: [place] [address] ). Warnings: Further evaluation is necessary. Prescription Medications: Hydrocodone/APAP 5mg / 325mg: take 1 orally every 6 hours as needed for pain. Dispense ten (10). No refill. Bactrim DS 800 mg / 160 mg: take 1 tablet orally every 12 hours for 10 days. No refill. Substitution is permissible. Keflex 500 mg: take 1 capsule orally every 8 hours for 10 days. No refill. Substitution is permissible. ADDITIONAL INFORMATION Abscess [Incision & Drainage] An abscess (sometimes called a boil) occurs when bacteria get trapped under the skin and begin to grow. Pus forms inside the abscess as the body responds to the bacteria. An abscess can occur with an insect bite, ingrown hair, blocked oil gland, pimple, cyst, or puncture wound. Treatment of your abscess has required an incision to drain the pus. If the abscess pocket was large, a gauze packing may have been inserted. This will need to be removed and possibly replaced on your next visit. Antibiotics are not required in the treatment of a simple abscess, unless the infection is spreading into the skin around the wound (known as cellulitis). Healing of the wound will take about one to two weeks depending on the size of the abscess. Healthy tissue will grow from the bottom and sides of the opening until it seals over. Home Care: The wound may drain for the first two days. Cover the wound with a clean dry dressing. If the dressing becomes soaked with blood or pus, change it. If a gauze packing was placed inside the abscess cavity, you may be advised to remove it yourself. You may do this in the shower. Once the packing is removed, you should wash the area in the shower or bath 3 to 4 times a day, until the skin opening has closed. If you were prescribed antibiotics, take them as directed until they are all gone. You may use acetaminophen (Tylenol) or ibuprofen (Motrin, Advil) to control pain, unless another pain medicine was prescribed. [ NOTE: If you have liver disease or ever had a stomach ulcer, talk with your doctor before using these medicines.] Follow Up with your doctor as advised by our staff. If a gauze packing was inserted in your wound, it should be removed in 1-2 days. Check your wound every day for the signs of worsening infection listed below. Get Prompt Medical Attention if any of the following occur: Increasing redness or swelling Red streaks in the skin leading away from the wound Increasing local pain or swelling Continued pus draining from the wound two days after treatment Fever of 100.4F (38C) or higher, or as directed by your healthcare provider Hydrocodone Bitartrate, Acetaminophen Oral tablet What is this medicine? ACETAMINOPHEN; HYDROCODONE (a set a CARLEY denia fen; ezequiel droe KOE done) is a pain reliever. It is used to treat mild to moderate pain. How should I use this medicine? Take this medicine by mouth. Swallow it with a full glass of water. Follow the directions on the prescription label. If the medicine upsets your stomach, take the medicine with food or milk. Do not take more than you are told to take. Talk to your sleeve setter lockstitch regarding the use of this medicine in children. This medicine is not approved for use in children. What side effects may I notice from receiving this medicine? Side effects that you should report to your doctor or health outdoor emergency care technician as soon as possible: allergic reactions like skin rash, itching or hives, swelling of the face, lips, or tongue breathing problems confusion feeling faint or lightheaded, falls stomach pain yellowing of the eyes or skin Side effects that usually do not require medical attention (report to your doctor or health outdoor emergency care technician if they continue or are bothersome): nausea, vomiting stomach upset What may interact with this medicine? alcohol antihistamines isoniazid medicines for depression, anxiety, or psychotic disturbances medicines for sleep muscle relaxants naltrexone narcotic medicines (opiates) for pain phenobarbital ritonavir tramadol What if I miss a dose? If you miss a dose, take it as soon as you can. If it is almost time for your next dose, take only that dose. Do not take double or extra doses. Where should I keep my medicine? Keep out of the reach of children. This medicine can be abused. Keep your medicine in a safe place to protect it from theft. Do not share this medicine with anyone. Selling or giving away this medicine is dangerous and against the law. Store at room temperature between 15 and 30 degrees C (59 and 86 degrees F). Protect from light. Keep container tightly closed. Throw away any unused medicine after the expiration date. Discard unused medicine and used packaging carefully. Pets and children can be harmed if they find used or lost packages. What should I tell my health care provider before I take this medicine? They need to know if you have any of these conditions: brain tumor Crohn's disease, inflammatory bowel disease, or ulcerative colitis drink more than 3 alcohol-containing drinks per day drug abuse or addiction head injury heart or circulation problems kidney disease or problems going to the bathroom liver disease lung disease, asthma, or breathing problems an unusual or allergic reaction to acetaminophen, hydrocodone, other opioid analgesics, other medicines, foods, dyes, or preservatives or trying to get breast-feeding What should I watch for while using this medicine? Tell your doctor or health outdoor emergency care technician if your pain does not go away, if it gets worse, or if you have new or a different type of pain. You may develop tolerance to the medicine. Tolerance means that you will need a higher dose of the medicine for pain relief. Tolerance is normal and is expected if you take the medicine for a long time. Do not suddenly stop taking your medicine because you may develop a severe reaction. Your body becomes used to the medicine. This does NOT mean you are addicted. Addiction is a behavior related to getting and using a drug for a non-medical reason. If you have pain, you have a medical reason to take pain medicine. Your doctor will tell you how much medicine to take. If your doctor wants you to stop the medicine, the dose will be slowly lowered over time to avoid any side effects. You may get drowsy or dizzy when you first start taking the medicine or change doses. Do not drive, use machinery, or do anything that may be dangerous until you know how the medicine affects you. Stand or sit up slowly. There are different types of narcotic medicines (opiates) for pain. If you take more than one type at the same time, you may have more side effects. Give your health care provider a list of all medicines you use. Your doctor will tell you how much medicine to take. Do not take more medicine than directed. Call emergency for help if you have problems breathing. The medicine will cause constipation. Try to have a bowel movement at least every 2 to 3 days. If you do not have a bowel movement for 3 days, call your doctor or health outdoor emergency care technician. Too much acetaminophen can be very dangerous. Do not take Tylenol (acetaminophen) or medicines that contain acetaminophen with this medicine. Many non-prescription medicines contain acetaminophen. Always read the labels carefully. Sulfamethoxazole, Trimethoprim Oral tablet What is this medicine? SULFAMETHOXAZOLE; TRIMETHOPRIM or SMX-TMP (suhl fuh meth OK dolly zohl; trye METH oh prim) is a combination of a sulfonamide antibiotic and a second antibiotic, trimethoprim. It is used to treat or prevent certain kinds of bacterial infections. It will not work for colds, flu, or other viral infections. How should I use this medicine? Take this medicine by mouth with a full glass of water. Follow the directions on the prescription label. Take your medicine at regular intervals. Do not take it more often than directed. Do not skip doses or stop your medicine early. Talk to your sleeve setter lockstitch regarding the use of this medicine in children. Special care may be needed. This medicine has been used in children as young as 2 months of age. What side effects may I notice from receiving this medicine? Side effects that you should report to your doctor or health outdoor emergency care technician as soon as possible: allergic reactions like skin rash or hives, swelling of the face, lips, or tongue breathing problems fever or chills, sore throat irregular heartbeat, chest pain joint or muscle pain pain or difficulty passing urine red pinpoint spots on skin redness, blistering, peeling or loosening of the skin, including inside the mouth unusual bleeding or bruising unusually weak or tired yellowing of the eyes or skin Side effects that usually do not require medical attention (report to your doctor or health outdoor emergency care technician if they continue or are bothersome): diarrhea dizziness headache loss of appetite nausea, vomiting nervousness What may interact with this medicine? Do not take this medicine with any of the following medications: aminobenzoate potassium dofetilide metronidazole This medicine may also interact with the following medications: ANGELA inhibitors like benazepril, enalapril, lisinopril, and ramipril cyclosporine digoxin diuretics indomethacin medicines for diabetes methenamine methotrexate phenytoin potassium supplements pyrimethamine sulfinpyrazone tricyclic antidepressants warfarin What if I miss a dose? If you miss a dose, take it as soon as you can. If it is almost time for your next dose, take only that dose. Do not take double or extra doses. Where should I keep my medicine? Keep out of the reach of children. Store at room temperature between 20 to 25 degrees C (68 to 77 degrees F). Protect from light. Throw away any unused medicine after the expiration date. What should I tell my health care provider before I take this medicine? They need to know if you have any of these conditions: anemia asthma being treated with anticonvulsants if you frequently drink alcohol containing drinks kidney disease liver disease low level of folic acid or [id number] dehydrogenase poor nutrition or malabsorption porphyria severe allergies thyroid disorder an unusual or allergic reaction to sulfamethoxazole, trimethoprim, sulfa drugs, other medicines, foods, dyes, or preservatives or trying to get breast-feeding What should I watch for while using this medicine? Tell your doctor or health outdoor emergency care technician if your symptoms do not improve. Drink several glasses of water a day to reduce the risk of kidney problems. Do not treat diarrhea with over the counter products. Contact your doctor if you have diarrhea that lasts more than 2 days or if it is severe and watery. This medicine can make you more sensitive to the sun. Keep out of the sun. If you cannot avoid being in the sun, wear protective clothing and use a sunscreen. Do not use sun lamps or tanning beds/booths. Cephalexin Monohydrate Oral tablet What is this medicine? CEPHALEXIN (sef a VANDANA in) is a cephalosporin antibiotic. It is used to treat certain kinds of bacterial infections It will not work for colds, flu, or other viral infections. How should I use this medicine? Take this medicine by mouth with a full glass of water. Follow the directions on the prescription label. This medicine can be taken with or without food. Take your medicine at regular intervals. Do not take your medicine more often than directed. Take all of your medicine as directed even if you think you are better. Do not skip doses or stop your medicine early. Talk to your sleeve setter lockstitch regarding the use of this medicine in children. While this drug may be prescribed for selected conditions, precautions do apply. What side effects may I notice from receiving this medicine? Side effects that you should report to your doctor or health outdoor emergency care technician as soon as possible: allergic reactions like skin rash, itching or hives, swelling of the face, lips, or tongue breathing problems pain or trouble passing urine redness, blistering, peeling or loosening of the skin, including inside the mouth severe or watery diarrhea unusually weak or tired yellowing of the eyes, skin Side effects that usually do not require medical attention (report to your doctor or health outdoor emergency care technician if they continue or are bothersome): gas or heartburn genital or anal irritation headache joint or muscle pain nausea, vomiting What may interact with this medicine? probenecid some other antibiotics What if I miss a dose? If you miss a dose, take it as soon as you can. If it is almost time for your next dose, take only that dose. Do not take double or extra doses. There should be at least 4 to 6 hours between doses. Where should I keep my medicine? Keep out of the reach of children. Store at room temperature between 59 and 86 degrees F (15 and 30 degrees C). Throw away any unused medicine after the expiration date. What should I tell my health care provider before I take this medicine? They need to know if you have any of these conditions: kidney disease stomach or intestine problems, especially colitis an unusual or allergic reaction to cephalexin, other cephalosporins, penicillins, other antibiotics, medicines, foods, dyes or preservatives or trying to get breast-feeding What should I watch for while using this medicine? Tell your doctor or health outdoor emergency care technician if your symptoms do not begin to improve in a few days. Do not treat diarrhea with over the counter products. Contact your doctor if you have diarrhea that lasts more than 2 days or if it is severe and watery. If you have diabetes, you may get a false-positive result for sugar in your urine. Check with your doctor or health outdoor emergency care technician. You have been given the following additional information: Abscess, Incision And Drainage Hydrocodone Bitartrate, Acetaminophen Oral tablet Sulfamethoxazole, Trimethoprim Oral tablet Cephalexin Monohydrate Oral tablet (Electronically signed by KoroleLinsey virgen P.A.-C 11/03/2016 23:32)
== END 2016-11-03 22:56 | disposition home or self-care (01) ==
LOC: ED SRH 21:51
DX: L02.411 Cutaneous abscess of right axilla (principal); Z23 Encounter for immunization